=== PATIENT | female | born 1950 | race Caucasian/White ===

== ENCOUNTER 2022-05-11 09:40 | Outpatient (CLI) | payer MEDICARE, MEDICAID, SELFPAY ==
--- NOTE | ~2022-05-11 | MR_ITS ---
EXAMINATION: MR hip RT wo con DATE: 05/11/2022 10:54 INDICATION: Right hip pain TECHNIQUE: Magnetic resonance imaging (MRI) of the right hip was performed without intravenous contr ast. Sequences included full-field axial PD-weighted FS FSE and T1-weighted FSE, coronal of the pelvi s with PD-weighted FS FSE, T2-weighted FSE and T1-weighted FSE, small field of view of the right hip with axial PD-weighted FS FSE, sagittal PD-weighted FS FSE, coronal PD-weighted FS FSE and coronal T2 weighted FSE. Additional radial T1-weighted FGR oriented orthogonal to the acetabular rim were obt ained for evaluation of the labrum. COMPARISON: Right hip radiographs dated 10/30/[address] abdomen and pelvis dated 01/24/2016 FINDINGS: Bones/labrum/cartilage: Lower lumbar levoscoliosis likely compensatory for a nonvisualized thoracolumbar dextroscoliosis whic h can be seen on prior CT. Severe lumbar spondylosis. No fracture, avascular necrosis or pathologic m arrow replacing process. Diffuse tearing of the right acetabular labrum with thickened macerated appe arance anterosuperiorly. Moderate right hip osteoarthritis with full/near full-thickness chondral ulc eration at the superolateral aspect of the right acetabulum and at the posterior aspect of the femora l head. There is replacement of much of the cartilage thickness by a large flat central subchondral o steophyte extending along the posterior posterior superior right acetabulum. Additional deep chondral ulceration. Additional mild to moderate osteoarthritis at the left hip with mild subarticular cystic change at the apex of the left femoral head. There is likely tearing of the left acetabular labrum h owever evaluation is significantly limited by the larger field of view of imaging. Mild to moderate b ilateral sacroiliac osteoarthritis. No erosions to suggest inflammatory arthritis. Fluid: Relatively symmetric minimal bilateral hip joint effusions. Soft tissues: No abnormal muscle signal with relatively symmetric likely age-related mild atrophy of the musculatur e of the pelvis and visualized proximal thighs. The iliopsoas and gluteal tendons are normal. Mild bi lateral ischial bursitis with mild tendinopathy and partial thickness tears at the ischial tuberosity origins of the bilateral proximal hamstring tendons. The uterus is not identified and has likely bee n surgically resected. Limited evaluation of visceral organs of the pelvis is otherwise unremarkable. No pathologically enlarged pelvic/inguinal lymphadenopathy. IMPRESSION: 1. Moderate right hip osteoarthritis with diffuse labral tearing. 2. Mild to moderate left hip osteoarthritis with suggestion of similar to the acetabular labrum which is not diagnostically evaluated on the larger field of view images. 3. Lumbar levoscoliosis with severe spondylosis. 4. Bilateral mild ischial bursitis with mild tendinopathy and mild partial-thickness tears of the ramiro ateral proximal hamstring tendons. Reviewed, dictated and finalized at location A. IMPRESSION: 1. Moderate right hip osteoarthritis with diffuse labral tearing. 2. Mild to moderate left hip osteoarthritis with suggestion of similar to the a cetabular labrum which is not diagnostically evaluated on the larger field of v iew images. 3. Lumbar levoscoliosis with severe spondylosis. 4. Bilateral mild ischial bursitis with mild tendinopathy and mild partial-thic kness tears of the bilateral proximal hamstring tendons.
== END 2022-05-11 09:41 | disposition home or self-care (01) ==
PROVIDERS: Visit Provider Orthopaedic Surgery
DX: M16.11 Unilateral primary osteoarthritis, right hip (principal); M47.896 Other spondylosis, lumbar region
CPT/HCPCS: 73721

== ENCOUNTER 2024-12-04 11:56 | Outpatient (NON) | payer OTHER, MEDICARE, MEDICAID, SELFPAY ==
--- OUTSIDE RECORDS SUMMARY | 2024-12-04 13:20 | XMS_ITS | Encounter Summary ---
Author Organization [facility] Address [address] [place] [address] Phone Care Team Providers Care Vault Teller Name Role Phone Dave Ramirez MD Primary Care Provider [phone] Joyce Espinosa FORMING MACHINE UPKEEP MECHANIC HELPER Primary Care Provider [phone] Scarlett Campa MD Primary Care Pro vider Joyce Espinosa FORMING MACHINE UPKEEP MECHANIC HELPER Primary Care Provider [phone] Prerna Guardado FORMING MACHINE UPKEEP MECHANIC HELPER Primary Care Provider + [phone] David Wharton MD Unavailable [phone] Christiane Sandoval MD Unavailable [phone] Alexus Arevalo FORMING MACHINE UPKEEP MECHANIC HELPER Primary Care Provider [phone] Encounter Details Date Type Department Care Team (Late st Contact Info) Description 08/02/2021 Telephone [facility] Oncology [facility] 7[address] [place] [address] [place] [address] Kat Car Social History Tobacco Use Types Packs/Day Years Used Date Smoking Tobacco: Light Smoker Cigarettes Smokeless Tobacco: Never Alcohol Use Standard Drinks/Week Comments Yes 0 (1 standard drink = 0.6 oz pure alcohol) one glass of wine every night with her Comments No Sex and Gender Information Value Date Recorded Sex Assigned at Not on file Legal Sex Female 2:17 AM CUSTOMER ACCOUNT REPRESENTATIVE Gender Identity Female 09/25/2023 11:55 PM CUSTOMER ACCOUNT REPRESENTATIVE Sexual Orientation Not on file documented as of this encounter Plan of Treatment Not on file documented as of this encounter Visit Diagnoses Not on filedocumented in this encounter Additional Health Concerns Infection Onset Date Last Indicated Resolved Time COVID: Suspected 10/16/2023 10/16/2023 10/16/2023 8:56 AM CUSTOMER ACCOUNT REPRESENTATIVE COVID: Suspected 11/05/2023 11/05/2023 11/05/2023 9:35 AM CUSTOMER ACCOUNT REPRESENTATIVE COVID: Suspected 11/27/2023 11/27/2023 11/27/2023 9:34 PM CDT C. difficile suspected Comment:Pending stool sample 03/02/2024 03/05/2024 03/05/2024 5:05 PM CDT COVID: Suspected 03/27/2024 03/27/2024 03/27/2024 12:21 PM CDT COVID19 03/27/2024 03/27/2024 04/08/2024 3:05 AM CDT COVID: Recovered Comment:Added based on recent COVID infection. 04/08/2024 04/08/2024 07/07/2024 3:05 AM C DT COVID: Suspected 05/03/2024 05/03/2024 05/04/2024 3:05 AM CDT documented as of this encounter Care Teams Vault Teller Relationship Specialty Start Date End Date Dave Ramirez MD [address] [place] [address] PCP - General 01/25/21 04/26/22 Joyce Espinosa, LEVI [address] [facility] [address] [place] [address] PCP - General 04/27/22 12/18/22 Scarlett Campa MD [address] [facility] [address] [place] [address] PCP - General Family Medicine 12/19/22 01/03/23 Joyce Espinosa NP [address] [facility] [address] [place] [address] PCP - General Nurse Practitioner 01/04/23 10/01/23 Prerna Guardado, LEVI [address] [facility] [address] [place] [address] PCP - General Emergency Medicine 10/02/23 03/17/24 Alexus Arevalo NP [address] [place] [address] PCP - General Family Medicine 03/18/24 David Wharton MD [address] [facility] [address] [place] [address] [address] Consulting Physician Cardiovascular Disease 10/24/23 Christiane Sandoval MD [address] [facility] [address] [place] [address] Consulting Physician Gastroenterology 02/13/24 documented as of this encounter
--- OUTSIDE RECORDS SUMMARY | 2024-12-04 13:21 | XMS_ITS | Encounter Summary ---
Author Organization [facility] Address [address] [place] [address] Care Team Providers Care Bicycle Service Technician Name Role Phone Joyce Bailon WRAPPER REWINDER Primary Care Provider [phone] Layla Yancey WRAPPER REWINDER Unavailable [phone] Hugh Avila DO Unavailable Joyce Bailon WRAPPER REWINDER Primary Care Provider [phone] Encounter Details Date Type Department Care Team (Late st Contact Info) Description 12/27/2021 Abstract [facility] [address] [place] [id number] Abstract, Doc [facility] Social History Tobacco Use Types Packs/Day Years Used Date Smoking Tobacco: Never Assessed Comments Unknown Sex and Gender Information Value Date Recorded Sex Assigned at Not on file Legal Sex Female 8:21 PM CDT Gender Identity Not on file Sexual Orientation Not on file documented as of this encounter Plan of Treatment Not on file documented as of this encounter Procedures Procedure Name Priority Date/Time Associated Diagnosis Comments HEMOGLOBIN, GLYCOSYLATED Routine 01/28/2021 documented in this encounter Results * HEMOGLOBIN, GLYCOSYLATED (01/28/2021) HGB A1C 5.6 % 01/28/2021 us Doc [facility] Abstract LABORATORY Final Result documented in this encounter Visit Diagnoses Not on filedocumented in this encounter Care Teams Bicycle Service Technician Relationship Specialty Start Date End Date Joyce Bailon NP PCP - General Nurse Practitioner Family 12/09/2112/18 Joyce Bailon NP PCP - General Assisted Living Facility 01/05/2303/23 Layla Yancey NP Nurse Practitioner NURSE PRACTITIONER 12/09/21 12/18/22 Hugh Avila DO Consulting Physician INTERNAL MEDICINE 12/09/21 12/18/22 documented as of this encounter
--- OUTSIDE RECORDS SUMMARY | 2024-12-04 13:21 | XMS_ITS | Referral Summary ---
Author Organization [facility] Address [address] [place] [address] Care Team Providers Care Geriatric Social Work Professor Name Role Phone David Wharton MD Unavailable [phone] Christiane Sandoval MD Unavailable [phone] Alexus Arevalo NP Primary Care Provider [phone] Encounters Date Type Department Care Team Description 11/25/2024 [facility] [address] [place] [address] [id number] Cecilia Garcia 11/22/2024 [facility] [address] [place] [address] [id number] Cecilia Garcia from Last 3 Months Allergies Active Allergy Reactions Criticality Noted Date Comments Albuterol Other (See comments) Low 04/05/2019 heart races with plain albuterol; patient states she is able to tolerate if given with ipratropium (Duo-Nebs). Citalopram Stomach upset Medium 04/05/2019 Duloxetine Hives,Itching Medium 04/05/2019 Gabapentin Itching Medium 04/05/2019 Grass Pollen Unknown Latex Itching,Rash Medium 04/05/2019 Lisinopril Itching,Dizziness Medium 04/05/2019 Mold Unknown Nsaids (Non-Steroidal Anti-Inflammatory Drug) Other (See comments) Low Patient reports NSAIDs irritate her stomach ulcers. Tolerates low dose aspirin without issue. Penicillins Anaphylaxis,Hives High 04/05/2019 Ok for cephalosporins Sulfa (Sulfonamide Antibiotics) Swelling Medium Topiramate Tramadol Stomach upset Medium 04/05/2019 Irritates stomach ulcers. Tolerates low dose aspirin without issue. Tree And Shrub Pollen Unknown Verapamil Hives Medium 08/24/2019 Medications ferrous sulfate 325 mg (65 mg of elemental iron) tablet Take 1 tablet (325 mg total) by mouth daily with breakfast Active fluticasone propionate (FLONASE) 50 mcg/actuation nasal spray Administer 1 spray into each nostril daily Active sucralfate (CARAFATE) 1 gram tablet Take 1 tablet (1 g total) by mouth 4 (four) times a day Active busPIRone (BUSPAR) 7.5 mg tablet Take 1 tablet (7.5 mg total) by mouth 2 (two) times a day Active olopatadine (PATANOL) 0.1 % ophthalmic solution Administer 1 drop into both eyes daily Active sertraline (ZOLOFT) 100 mg tablet Take 1 tablet (100 mg total) by mouth daily Active melatonin tablet Take 5 mg by mouth nightly Active ondansetron (ZOFRAN) 4 mg tablet Take 1 tablet (4 mg total) by mouth every 4 (four) hours as needed for nausea or vomiting Active alendronate (FOSAMAX) 70 mg tablet Take 1 tablet (70 mg total) by mouth every 7 days on Wednesdays 0 Active cholecalciferol (VITAMIN D-3) 1000 unit tablet Take 1 tablet (1,000 Units total) by mouth daily Active EPINEPHrine 0.3 mg/0.3 mL auto-injection syringe Inject 0.3 mL (0.3 mg total) into the muscle as instructed as needed for anaphylaxis 7 Active montelukast (SINGULAIR) 10 mg tablet Take 1 tablet (10 mg total) by mouth nightly [address] (PROTONIX) 40 mg EC tablet Take 1 tablet (40 mg total) by mouth 2 (two) times a day 2 Active rosuvastatin (CRESTOR) 5 mg tablet Take 1 tablet (5 mg total) by mouth nightly 2 Active mirtazapine (REMERON) 30 mg tablet Take 1 tablet (30 mg total) by mouth nightly 3 Active magnesium oxide (MAG-OX) 400 mg (241.3 mg elemental magnesium) tablet Take 1 tablet (400 mg total) by mouth daily Active nitroglycerin (NITROSTAT) 0.[address] 1 tablet (0.4 mg total) under the tongue every 5 (five) minutes as needed for chest pain Active oxyCODONE (ROXICODONE) 10 mg tablet Take 1 tablet (10 mg total) by mouth every 6 (six) hours as needed for pain Active gabapentin (NEURONTIN) 100 mg capsule Take 1 capsule (100 mg total) by mouth 2 (two) times a day Active ipratropium-alb uteroL (DUO-NEB) 0.5-2.5 mg/3 mL nebulizer solution Take 3 mL by nebulization 2 (two) times a day as needed for wheezing or shortness of breath 180 mL 4 Active acetaminophen (TYLENOL) 500 mg tablet Take 1 tablet (500 mg total) by mouth every 6 (six) hours as needed for pain Active lidocaine (LIDODERM) 5 % Place 1 patch on the skin daily on low back. Remove & discard patch within 12 hours or as directed by MD. Active albuterol HFA (PROVENTIL HFA,VENTOLIN HFA,PROAIR HFA) 90 mcg/actuation inhaler Inhale 2 puffs every 6 (six) hours as needed for wheezing or shortness of breath 1 each 3 4 Active budesonide-form oteroL (SYMBICORT) 160-4.5 mcg/actuation inhaler Inhale 1 puff 2 (two) times a day Rinse mouth with water after use. Do not swallow. 1 each 3 4 Active amiodarone (PACERONE) 200 mg tablet Take 1 tablet (200 mg total) by mouth daily Active rivaroxaban (XARELTO) 15 mg tablet Take 1 tablet (15 mg total) by mouth daily with dinner Active ipratropium-alb uteroL (DUO-NEB) 0.5-2.5 mg/3 mL nebulizer solution Take 3 mL by nebulization 2 (two) times a day Active guaiFENesin ER (MUCINEX) 600 mg 12 hr tablet Take 2 tablets (1,200 mg total) by mouth 2 (two) times a day 120 tablet 11 4 03/29/20 25 Active furosemide (LASIX) 40 mg tablet Take 1 tablet (40 mg total) by mouth daily Active methocarbamoL (ROBAXIN) 500 mg tablet Take 1 tablet (500 mg total) by mouth 3 (three) times a day as needed for muscle spasms Active Active Problems Problem Noted Date Diagnosed Date Gastrointestinal hemorrhage with melena 04/20/20 SARS-CoV-2 positive 03/27/2024 COVID 03/27/2024 Gastrointestinal hemorrhage, unspecified gastrointestinal hemorrhage type 03/02/2024 Proctocolitis 03/02/2024 Gastric intestinal metaplasia 02/13/2024 Chronic anticoagulation 02/13/2024 Paroxysmal atrial fibrillation 02/13/2024 Severe protein-calorie malnutrition 02/09/2024 Symptomatic anemia 01/31/2024 Melena 01/30/2024 Chronic pain syndrome 12/02/2023 Chronic narcotic dependence 12/02/2023 Macrocytic anemia 12/01/2023 Pleural effusion, bilateral 11/05/2023 Atrial fib/flutter, transient 10/21/2023 Nonrheumatic aortic valve stenosis 10/21/2023 Coronary artery disease invo lving [place] heart without angina pectoris 12/20/2022 Overview (12/20/2022): follows with cards continue statin & 81mg ASA Chronic congestive heart failure 12/20/2022 Overview (12/20/2022): Follows with cards on 40mg lasix daily with additional 20mg daily prn GARRICK (generalized anxiety disorder) 12/20/2022 Overview (12/20/2022): continue 100mg zoloft and 7.5mg buspar bid Nicotine dependence 12/21/2020 Assessment & Plan (12/20/2022 6:23 AM CDT): Encouraged cessation Diabetes mellitus 09/22/2020 Assessment & Plan (12/20/2022 6:22 AM CDT): Not on medications Check a1c Thyroid nodule 09/22/2020 Hyperthyroidism 09/22/2020 Assessment & Plan (12/20/2022 6:22 AM CDT): Not on medications Check labs Chronic respiratory failure with hypoxia 020 Assessment & Plan (12/20/2022 6:18 AM CDT): Follows with pulmonology On 2-3L O2 Exercise hypoxemia 08/05/2020 Sleep-related hypoxia 08/05/2020 Syncope due to sick sinus syndrome 08/05/2020 Colon polyps 11/04/2019 Overview (11/04/2019): With normal transaminases with possible history of papillary stenosis with previous ERCP and pancreatic common bile duct sent placements Mechanical complication of esophagostomy 020 Obstructive chronic bronchitis with exacerbation 11/04/2019 Chronic obstructive pulmonary disease with bronc hospasm 10/21/2019 Common bile duct stricture 10/21/2019 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 GERD (gastroesophageal reflux disease) 0 Overview (10/21/2019): With severe esophageal dysmotility Assessment & Plan (12/20/2022 6:28 AM CDT): Follows with GI On protonix 40mg and carafate 1g QID Chronic back pain 10/21/2019 Assessment & Plan (12/20/2022 6:20 AM CDT): Advised prior to start of appointment that I don't manage/prescribe opiates for chronic pain, she notes understanding Given the names of several pain management groups in the area Assessment & Plan (10/22/2019 1:22 PM FINANCIAL AID COUNSELOR): Continue patient's home tylenol but holding flexeril and lyrica, due to concern for ongoing altered mental status. - Can give lidocaine patch if patient has increased pain overnight. - Restarted oxycodone 5 mg PRN for pain, although this correlated with increase in patient somnolence. - CTM mental status and pain. Depression 10/21/2019 Assessment & Plan (12/20/2022 6:20 AM CDT): PHQ Screening PHQ-2 Total Score (If total score is 3 or more points, staff should administer the PHQ-9): 0 PHQ-9 Total Score: 2 Continue remeron 30mg nightly and 100mg zoloft Assessment & Plan (10/21/2019 8:22 PM FINANCIAL AID COUNSELOR): Not listed in her chart, but patient is on three different psychiatric meds, including mirtazapine, buspirone, and sertraline. Will also clarify this with PCP tomorrow. Will continue home psych meds. Repeated falls 10/21/2019 Assessment & Plan (10/23/2019 2:34 PM FINANCIAL AID COUNSELOR): Patient fell 4 times in one night, with resulting L tibial plateau fracture. - Source of falls sound syncopal, possibly 2/2 to ongoing infection and dehydration. - PT/OT eval for mobility and safety once patient's acute illness is treated and she can tolerate it. - Recommended home PT/OT. - Will order wheelchair for patient as well. - Patient lives at the end of a long hallway and with decreased mobility due to non-weight bearing on left leg she will be unable to go to the cafeteria for meals without a wheelchair. - Patient has inadequate upper body strength and coordination to safely use a cane or a walker in order to maintain non-weight bearing status on left leg. - Patient's facility has elevators that will permit use of wheelchair within the facility. Chronic obstructive pulmonary disease 10/21/2019 Overview (10/21/2019): COPD Assessment & Plan (12/20/2022 6:21 AM CDT): Follows with pulmonology Continue symbicort daily and albuterol prn Assessment & Plan (10/21/2019 8:23 PM FINANCIAL AID COUNSELOR): Continue home advair, ipratropium, and flonase. Osteoporosis 10/21/2019 Assessment & Plan (12/20/2022 6:22 AM CDT): Continue fosamax Assessment & Plan (10/21/2019 8:24 PM FINANCIAL AID COUNSELOR): Patient takes vitamin D supplements daily and alendronate weekly. - Continue alendronate, especially in the context of tibial plateau fracture. Primary osteoarthritis of right hip 03/12/2018 Essential hypertension 03/10/2014 Assessment & Plan (12/20/2022 6:18 AM CDT): Blood pressure at goal, continue dilt Assessment & Plan (10/21/2019 8:19 PM FINANCIAL AID COUNSELOR): Will hold home lasix and potassium in the setting of acute infection. Has not been hypertensive during this admission. Lumbago 03/10/2014 Arthritis 03/10/2014 Pure hypercholesterolemia 01/25/2014 Overview (12/16/2016): PURE HYPERCHOLESTEROLEM Assessment & Plan (12/20/2022 6:19 AM CDT): Continue statin Resolved Problems Problem Noted Date Diagnosed Date Resolved Date Diarrhea 02/09/2024 03/02/2024 Dehydration 02/09/2024 03/02/2024 UGIB (upper gastrointestinal bleed) 02/08/2024 03/02/2024 Acute upper GI bleeding 02/03/202402/10 Gastritis with hemorrhage 02/03/2024 Sepsis due to Escherichia coli 02/03/2024 03/02/2024 Profound anemia 01/30/2024 03/02/2024 Acute renal failure 12/02/2023 01/31/20 Hyperkalemia 12/01/2023 01/31/2024 Acute retention of urine 11/30/2023 Hypernatremia 11/30/2023 01/31/2024 Small bowel obstruction 11/27/202301/10 COPD with acute exacerbation 11/05/2023 01/31/2024 Acute on chronic respiratory failure with hypoxia 11/05/2023 01/31/2024 Severe protein-calorie malnutrition 10/21/2023 03/02/2024 Acute on chronic heart failu re with preserved ejection fraction 10/21/2023 01/31/2024 Multifocal pneumonia 10/16/2023 024 Gross hematuria 09/26/2023 01/31/2024 Generalized abdominal pain 06/09/2023 0 01/31/2024 Constipation 12/20/2022 01/31/2024 Environmental allergies 12/20/202201/10 Overview (12/20/2022): Continue claritin, singulair and flonase Bacteremia due to Pseudomonas 08/05/2020 12/19/2022 Community acquired pneumonia, bilateral 08/05/2020 12/19/2022 Suspected 2019-nCoV infection 08/05/2020 01/31/2024 Dyslipidemia, goal LDL below 100 11/04/2019 01/31/2024 Line sepsis ([facility]/HCC) 11/04/20192022 Pain of left calf 11/04/2019 01/31/2024 Recurrent vomiting 11/04/2019 Assessment & Plan (12/20/2022 6:22 AM CDT): Following with GI On reglan and zofran as needed Sprain of left foot 11/04/2019 12/20/19 23 Swelling of right lower extremity 11/04/2019 01/31/2024 Localized swelling of left lower extremity 10/23/2019 01/31/2024 Assessment & Plan (10/23/2019 11:41 AM FINANCIAL AID COUNSELOR): Patient had new-onset left lower extremity swelling this AM. Could be secondary to trauma to that leg, but should rule out DVT given recent trauma to that leg. - Got bilateral venous dopplers in her lower extremity which were negative DVT. - Recommend elevation of leg when possible. Severe malnutrition 10/22/2019 03/02/20 Assessment & Plan (10/23/2019 11:39 AM FINANCIAL AID COUNSELOR): Assessed by welt sole layer, malnutrition secondary to poor PO intake, most likely from recent illness and altered mental status. - Ordered Ensure Plus supplements with meals. Acute cystitis without hematuria 10/21/2019 12/19/2022 Assessment & Plan (10/23/2019 11:24 AM FINANCIAL AID COUNSELOR): Patient initially worked up for stroke, found to have increased urinary frequency, suprapubic pain, and dysuria, along with leuk esterase and nitrites. - Patient started on IV ciprofloxacin empirically, and then broadened to aztreonam by the ED O/N. - On admission to the floor transitioned patient to ceftriaxone. - Urine culture is pending. - Patient apparently has a history of UTIs, but unclear when her last one was and what her UTIs have been treated with in the past. - Urine cultures showed E. Coli that is nelson sensitive. Because patient has tolerated ceftriaxone well, will plan to discharge on cephalexin 500 mg BID. Delirium 10/21/2019 03/02/2024 Assessment & Plan (10/23/2019 11:37 AM FINANCIAL AID COUNSELOR): Patient with worsening mental status over the last 3 months per patient's nurse at the nursing facility. - Initially concern for acute stroke in the setting of new falls, but nurse's reports sounds of longer duration than would be expected from an acute stroke. - However, decline in mental status appears to pre-date current bout of urinary symptoms. - Mental status appears to be improving with hydration and treatment of her infection - mental status was much improved this morning. - Most likely multifactorial, since patient was more somnolent after taking oxycodone for pain, and she has multiple sedation and delirium inducing medications prescribed. - Delirium precautions, including ramelteon and mirtazapine for sleep if necessary. Will continue to try to minimize delirium-provoking medications. - Will discharge to home on acetaminophen 650 q 6 hr, oxycodone 5 mg q 6 hr PRN, and 4% topical lidocaine patches for pain. - Discontinuing flexeril and oxycodone 20 mg. Making metoclopromide PRN rather than scheduled. Patient reports that her pain has been well-controlled on oxycodone 5 mg q 4 hr, and she has not had trouble with PO intake. Common bile duct stricture 10/21/2019 0 01/31/2024 Assessment & Plan (10/22/2019 1:22 PM FINANCIAL AID COUNSELOR): Patient has history of multiple ERCPs for biliary stricture with concern for duodenal mass. - Actual nature of this medical issue is currently unclear and patient could not provide more detail. Will call PCP tomorrow. - Continue home sucralfate, and pantroprazole for right now. - Holding home metoclopramide unless nauseated due to concern that it is contibuting to delirium. Tibial plateau fracture, lef t, closed, initial encounter 10/21/2019 01/31/2024 Assessment & Plan (10/23/2019 11:38 AM FINANCIAL AID COUNSELOR): Orthopedics consulted. Per their evaluation patient is not an operative candidate. - Patient to wear hinged knee brace at all times unless showering until orthopedics follow up scheduled with Dr Amaro on 11/07/2019. - Patient is ROM as tolerated in LLE and non-weight bearing in LLE. - Tertiary exam to be performed on 10/22/2019 - no further interventions plans. Post-op pain 07/02/2019 01/31/2024 Pain in buttock 03/10/2014 01/31/2024 Pain of lower extremity 03/10/201401/10 Numbness of foot 03/10/2014 01/31/2024 Tachycardia 01/25/2014 03/02/2024 Overview (12/15/2016): TACHYCARDIA NOS Shortness of breath 01/25/2014 03/02/20 Overview (12/16/2016): SHORTNESS OF BREATH Chest pain 01/25/2014 03/02/2024 Overview (12/16/2016): CHEST PAIN NOS Palpitations 01/25/2014 01/31/2024 Overview (12/16/2016): PALPITATIONS Immunizations Immunization Administration Dates Next Due Hep A, Unspecified 06/15/2015,07/21/2014 Hep B Vaccine 10/31/2000,09/26/2000 Influenza, Quadrivalent, Hig h Dose, Preservative Free, Intrr 06/15/2023,06/20/2022,06/11/2020,05/30 Influenza, Quadrivalent, Spl it, Intramuscular 07/06/2018 Influenza, Trivalent, Preser vative Free, Intramuscular 04/11/2013 Influenza, Unspecified 08/26/2021,2018,06/11/2019,07/06,05/08/2018,05/25/2017,07/07/2016 ,05/24/2016,06/15/2015,07/21/2014,/09/2012 Moderna SARS-CoV-2 Monovalen t Vaccination (12+ YRS) 08/23/2021 Pfizer SARS-CoV-2 Monovalent Vaccination (12+ Yrs) PURPLE 10/29/2020 Pneumococcal Conjugate PCV 13 09/28/2017, 017 Pneumococcal Conjugate, Unspecified 09/11/2007 Pneumococcal Polysaccharide PPV23 07/06/2018 Tdap 03/08/2017 Social History Tobacco Use Types Packs/Day Years Used Date Smoking Tobacco: Former Cigarettes Smokeless Tobacco: Never Tobacco Cessation:Counseling Given: Not Answered Comments:5 cigarettes per day Alcohol Use Standard Drinks/Week Comments Yes 0 (1 standard drink = 0.6 oz pure alcohol) one glass of wine every night with her [employer] Answer Date Recorded In the past 12 months has [employer], [employer], or water [employer] threatened to shut off services in your home? No 03/28/2024 Social Connection and Isolat ion Panel [NHANES] Answer Date Recorded In a typical week, how many times do you talk on the phone with family, friends, or neighbors? More than three times a week 03/28/2024 How often do you get togethe r with friends or relatives? More than three times a week 03/28/2024 How often do you attend chur or episcopalian services? 1 to 4 times per year 03/28/2024 Do you belong to any clubs o r organizations such as sabianist groups, unions, fraternal or athletic groups, or school groups? No 03/28/2024 How often do you attend meet ings of the clubs or organizations you belong to? Never 03/28/2024 Are you , , di vorced, , never , or living with a partner? 03/28/2024 AUDIT-C Answer Date Recorded Q1: How often do you have a drink containing alc ohol? Monthly or less 05/07/2024 Q2: How many drinks containi ng alcohol do you have on a typical day when you are drinking? 1 or 2 05/07/2024 Q3: How often do you have si x or more drinks on one occasion? Never 05/07/2024 Overall Financial Resource Strain (CARDIA) Answe r Date Recorded How hard is it for you to pa y for the very basics like food, housing, medical care, and heating? Not hard at all 03/28/2024 PHQ-2 Answer Date Recorded PHQ-2 Total Score 0 05/29/2024 Hunger Vital Sign Answer Date Recorded Within the past 12 months, y ou worried that your food would run out before you got the money to buy more. Never true 03/28/20 24 Within the past 12 months, t he food you bought just didn't last and you didn't have money to get more. Never true 03/28/2024 PRAPARE - Transportation Answer Date Re corded In the past 12 months, has l ack of transportation kept you from medical appointments or from getting medications? No 03/11 In the past 12 months, has l ack of transportation kept you from meetings, work, or from getting things needed for daily living? No 03/28/2024 Housing Stability Vital Sign Answer Migue e Recorded In the last 12 months, was t here a time when you were not able to pay the mortgage or rent on time? No 11/28/2023 In the last 12 months, how many places have you lived? 1 11/28/2023 In the last 12 months, was t here a time when you did not have a steady place to sleep or slept in a fpc (including now)? No 11/28/2023 PHQ-9 Answer Date Recorded PHQ-9 Total Score 1 05/29/2024 Housing Stability Vital Sign Answer Migue e Recorded In the last 12 months, was t here a time when you were not able to pay the mortgage or rent on time? No 03/28/2024 In the past 12 months, how m any times have you moved where you were living? 0 03/28/2024 At any time in the past 12 m [facility], were you homeless or living in a fpc (including now)? No 03/28/2024 Personal Safety Answer Date Recorded Have you ever been in or are you currently in a harmful physical or emotional relationship or is someone making you feel afraid or unsafe? Denies 06/09/2024 Comments No Sex and Gender Information Value Date Recorded Sex Assigned at Not on file Legal Sex Female 2:17 AM FINANCIAL AID COUNSELOR Gender Identity Female 09/25/2023 11:55 PM FINANCIAL AID COUNSELOR Sexual Orientation Not on file Last Filed Vital Signs Vital Sign Reading Time Taken Comments Blood Pressure 102/61 06/09/2024 5:40 AM CDT Pulse 64 06/09/2024 5:40 AM CDT Temperature 36.5 C (97.7 F) 06/09/2024 1:34 AM CDT Respiratory Rate 14 06/09/2024 5:40 AM CDT Oxygen Saturation 93% 06/09/2024 5:45 AM CDT Inhaled Oxygen Concentration - - Weight 44 kg (97 lb) 06/09/2024 1:34 AM CDT Height 160 cm (5' 3 ) 05/29/2024 10:00 AM CDT Body Mass Index 17.18 05/29/2024 10:00 AM CDT Plan of Treatment Not on file Procedures Procedure Name Priority Date/Time Associated Diagnosis Comments EGFR STAT 06/09/2024 1:03 AM CDT SCREENING MAMMOGRAM BILATERAL W MATT Schedule Routine, Read Routine (OP Routine) 04/01/2024 2:12 PM CDT Screening mammogram, encounter for LIPID PANEL Routine 03/27/2024 4:40 PM CDT DEXA AXIAL SKELETON BONE DENSITY 1 OR MORE SITES Schedule Routine, Read Routine (OP Routine) 12/19/2023 8:37 AM CDT Postmenopausal state HEMOGLOBIN A1C Routine 11/07/2023 6:27 AM FINANCIAL AID COUNSELOR from Last 3 Months or Most Recently Relevant to Health Maintenance Results * eGFR (06/09/2024 1:03 AM CDT) eGFR 61 >=60 mL/min/1. 73 m2 Comment: Interpretive Data Reference Interval Normal >/= 90 mL/min/1.73m2 Mildly decreased* 60 - 89 mL/min/1.73m2 Mildly to moderately decreased 45 - 59 mL/min/1.73m2 Moderately to severely decreased 30 - 44 mL/min/1.73m2 Severely decreased 15 - 29 mL/min/1.73m2 Kidney Failure < 15 mL/min/1.73m2 *Relative to young adult level Estimated glomerular filtration rate is determined by the 2020 CKD-EPI equation recommended by the National Kid[employer] Foundation (A Unifying Approach to GFR Estimation: Recommendations of the NKF-ASK Task Force on Reassessing the Inclusion of Race in Diagnosing Kidney Disease, JASN 2020). The CKD-EPI equation should not be used for patients with unstable renal function and has not been validated in children and those over 70. Current interpretive data was last reviewed 2021. Blood 06/09/2024 1:03 AM CDT 06/09/2024 1:05 AM CDT us Juanito Lyons Jr., MD LAB BLOOD ORDERABLES Fi nal Result [facility] [id number] [facility] Department [place] [address] * (ABNORMAL) Screening Mammogram Bilateral W Matt (04/01/2024 2:12 PM CDT) Anatomical Region Laterality Modality Breast Bilateral Mammography Impressions 04/01/2024 2:17 PM CDT BI-RADS ATLAS category (overall): 0 - Incomplete: Needs Additional Imaging Evaluation There is a focal asymmetry in the central right breast. Further evaluation with right unilateral diagnostic mammogram and possible sonogram is recommended. No suspicious findings are identified in the left breast on mammogram. The patient has been or will be contacted. Narrative 04/01/2024 2:17 PM CDT Screening Mammogram Bilateral W Matt: 04/01/24 The study was acquired using full field digital technology and interpreted from soft copy. 2D digital mammographic views, as well as 3D digital tomosynthesis were performed in the CC and MLO projections. CLINICAL: Screening mammogram, encounter for. No relevant medical history has been documented for this patient. History of breast cancer in Neg Hx. COMPARISONS: 05/22/2017 Diagnostic Mammogram Left W Matt 04/07/2017 Screening Mammogram Bilateral W Matt BREAST TISSUE: The breasts have scattered areas of fibroglandular density. FINDINGS: There is a focal asymmetry in the central right breast. No suspicious findings are identified in the left breast on mammogram. Alexus Arevalo STEEL RULE INSPECTOR IMG MAMMO PROCEDURES Final Result * Lipid panel (03/27/2024 4:40 PM CDT) Cholesterol 133 30 - 199 mg/dL Comment: Interpretive Data Ages < or = 19 years Acceptable: <170 mg/dL Borderline high: 170-199 mg/dL High: >or= 200 mg/dL Ages > or = 20 years Desirable: <200 mg/dL Borderline high: 200-239 mg/dL High: >or= 240 mg/dL Literature References: 1. Expert Panel on Integrated Guidelines for Cardiovascular Health and Risk Reduction in Children and Adolescents. Pediatrics 2011;128:S213 2. NCEP Expert Panel. Circulation 2004;110:227 Current Interpretive Data was last revised on 2018. Triglycerides 74 <=149 mg/dL MELISSA Comment: Interpretive Data Ages < or = 9 years Acceptable: <75 mg/dL Borderline high: 75-99 mg/dL High: >or= 100 mg/dL Ages 10 to 20 years Acceptable: <90 mg/dL Borderline high: 90-129 mg/dL High: >or= 130 mg/dL Ages > or = 20 years Desirable: <150 mg/dL Borderline high: 150-199 mg/dL High: 200-499 mg/dL Very high: >or= 499 mg/dL Literature References: 1. Expert Panel on Integrated Guidelines for Cardiovascular Health and Risk Reduction in Children and Adolescents. Pediatrics 2011;128:S213 2. NCEP Expert Panel. Circulation 2004;110:227 Current Interpretive Data was last revised on 2018. HDL 45 >=40 mg/dL MELISSA Comment: Interpretive Data Ages < or = 19 years Acceptable: >45 mg/dL Borderline low: 40-45 mg/dL Low: <40 mg/dL Ages > or = 20 years Desirable: >or= 60 mg/dL Low: <40 mg/dL Literature References: 1. Expert Panel on Integrated Guidelines for Cardiovascular Health and Risk Reduction in Children and Adolescents. Pediatrics 2011;128:S213 2. NCEP Expert Panel. Circulation 2004;110:227 Current Interpretive Data was last revised on 2018. LDL, calculated 73 <=129 mg/dL MELISSA SHRESTHA Comment: Interpretive Data Ages < or = 19 years Acceptable: <110 mg/dL Borderline high: 110-129 mg/dL High: >or= 130 mg/dL Ages > or = 20 years Optimal: <100 mg/dL Near optimal: 100-129 mg/dL Borderline high: 130-159 mg/dL High: >160 mg/dL Literature References: 1. Expert Panel on Integrated Guidelines for Cardiovascular Health and Risk Reduction in Children and Adolescents. Pediatrics 2011;128:S213 2. NCEP Expert Panel. Circulation 2004;110:227 Current Interpretive Data was last revised on 2018. Non-HDL Cholesterol 88 mg/dL MELISSA SHRESTHA Comment: Interpretive Data Ages < or = 19 years Acceptable: <120 mg/dL Borderline high: 120-144 mg/dL High: >145 mg/dL Ages > or = 20 years When triglycerides are >200 mg/dL, Non-HDL cholesterol is a secondary target of therapy with treatment goals that are 30 mg/dL greater than the LDL cholesterol target. Literature References: 1. Expert Panel on Integrated Guidelines for Cardiovascular Health and Risk Reduction in Children and Adolescents. Pediatrics 2011;128:S213 2. NCEP Expert Panel. Circulation 2004;110:227 Current Interpretive Data was last revised on 2018. Chol/HDL ratio 3 MELISSA SHRESTHA Blood 03/27/2024 4:40 PM CDT 03/27/2024 4:44 PM CDT Wan Dodge MD LAB BLOOD ORDERABLES Final Result MELISSA [address] [facility] Department [place] [address] * Dexa Axial Skeleton Bone Density 1 or 2 Site (12/19/2023 8:37 AM CDT) Anatomical Region Laterality Modality Body N/A Mammography 12/19/2023 8:47 AM CDT Narrative 12/19/2023 8:49 AM CDT EXAM DESCRIPTION: DEXA AXIAL SKELETON BONE DENSITY 1 OR MORE SITES REASON FOR STUDY: 73 y/o year old F with given history of: Post menopausal status. History of prior fracture, smoking and rheumatoid arthritis. Patient has taken/is taking vitamin-D and calcium. 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 Dissimilar scan types or analysis methods precludes assessment for calculating a significant change. FINDINGS: AP LUMBAR SPINE L1-L4: Total BMD is 0.858 g/cm2 T-score is -1.7 Dextroconvex curvature centered at the thoracolumbar junction LEFT HIP: Total BMD is 0.494 g/cm2 T-score is -3.7 Femoral neck BMD is 0.423 g/cm2 T-score is -3.8 Left forearm BMD in the radius 33% is 0.394 g/cm2 T-score is -5.0 FRAX: FRAX not reported due to T-scores of hip, femoral neck and/or spine being at or below -2.5 (Osteoporosis). IMPRESSION: Osteoporosis. REFERENCE: Bone mineral density: T-Score: Normal (T-score above or = -1.0) Low bone mass (T-score between -1.0 and -2.5) replaces the previously used term osteopenia Osteoporosis (T-score = or below -2.5) Z-Score: Within the expected range for age (Z-score above -2.0) Below the expected range for age (Z-score is -2.0 or below) Please see below follow up recommendations. Medical evaluation for secondary causes of low bone mineral density may be appropriate. FRAX is a World Health Organization validated fracture risk assessment tool that calculates a person's 10 year probability of a major osteoporosis related fracture and hip fracture. According to the National Osteoporosis Foundation guidelines, postmenopausal women and men age 50 or older with low bone mass and a 10 year probability of a major osteoporosis related fracture = or greater than 20% or a 10 year probability of a hip fracture = or greater than 3% should be considered for pharmacological treatment for the prevention of osteoporosis. For further information, including treatment recommendations, please refer to the 2019 ISCD Official Positions (http://www.iscd.org) and the NOF's Clinician's Guide to Prevention and Treatment of Osteoporosis (http://www.nof.org/professionals/clinical-guidelines) THIS IS AN ELECTRONICALLY VERIFIED FINAL REPORT 12/19/2023 8:49 AM - Electronically signed by Yue Shepard M.D. TW: TW Report ID: [id number] Reading Location: [place] [address] Procedure Note Yue Shepard MD - 12/19/2023 EXAM DESCRIPTION: DEXA AXIAL SKELETON BONE DENSITY 1 OR MORE SITES REASON FOR STUDY: 73 y/o year old F with given history of: Post menopausal status. History of prior fracture, smoking and rheumatoid arthritis. Patient has taken/is taking vitamin-D and calcium. 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 Dissimilar scan types or analysis methods precludes assessment for calculating a significant change. FINDINGS: AP LUMBAR SPINE L1-L4: Total BMD is 0.858 g/cm2 T-score is -1.7 Dextroconvex curvature centered at the thoracolumbar junction LEFT HIP: Total BMD is 0.494 g/cm2 T-score is -3.7 Femoral neck BMD is 0.423 g/cm2 T-score is -3.8 Left forearm BMD in the radius 33% is 0.394 g/cm2 T-score is -5.0 FRAX: FRAX not reported due to T-scores of hip, femoral neck and/or spine beingat or below -2.5 (Osteoporosis). IMPRESSION: Osteoporosis. REFERENCE: Bone mineral density: T-Score: Normal (T-score above or = -1.0) Low bone mass (T-score between -1.0 and -2.5) replaces thepreviously used term osteopenia Osteoporosis (T-score = or below -2.5) Z-Score: Within the expected range for age (Z-score above -2.0) Below the expected range for age (Z-score is -2.0 or below) Please see below follow up recommendations. Medical evaluation forsecondary causes of low bone mineral density may be appropriate. FRAX is a World Health Organization validated fracture risk assessmenttool that calculates a person's 10 year probability of a major osteoporosisrelated fracture and hip fracture. According to the National OsteoporosisFoundation guidelines, postmenopausal women and men age 50 or older with low bonemass and a 10 year probability of a major osteoporosis related fracture = or greater than 20% or a 10 year probability of a hip fracture = or greaterthan 3% should be considered for pharmacological treatment for the preventionof osteoporosis. For further information, including treatment recommendations, please referto the 2019 ISCD Official Positions (http://www.iscd.org) and the NOF's Clinician's Guide to Prevention and Treatment of Osteoporosis (http://www.nof.org/professionals/clinical-guidelines) THIS IS AN ELECTRONICALLY VERIFIED FINAL REPORT 12/19/2023 8:49 AM - Electronically signed by Yue Shepard M.D. TW: TW Report ID: [id number] Reading Location: [place] [address] us Prerna Guardado NP IMG DXA PROCEDURES Final Result * (ABNORMAL) Hemoglobin A1c (11/07/2023 6:27 AM FINANCIAL AID COUNSELOR) Hgb A1C 5.7(H) 4.0 - 5.6 % MELISSA SHRESTHA Estimated Average Glucose 117 mg/dL MELISSA SHRESTHA Comment: The ADA recommends reporting an estimated Average Glucose (eAG) with all Hemoglobin A1c results using the equation derived from a study of 507 normal and diabetic adults. Minority populations were underrepresented and children were not included. (Diabetes Care 31:8207-6596, 2008). The eAG is not equivalent to a fasting glucose. Blood 11/07/2023 6:27 AM FINANCIAL AID COUNSELOR 11/07/2023 7:04 AM FINANCIAL AID COUNSELOR us Jag Fox MD LAB BLOOD ORDERAB LES Final Result MELISSA SHRESTHA [address] [facility] Department of Laboratories [place], [place] [id number] from Last 3 Months or Most Recently Relevant to Health Maintenance Insurance [facility] MED[facility] ADVANTAGE [facility] Address: [address] [address] [place] [address] [facility] MEDICARE ADVANTAGE [facility] Address: [address] [address] [place] [address] [employer] [facility] MEDICARE ADVANTAGE [facility] Address: [address] [address] [place] [address] Advance Directives For more information, please contact: [phone] Documents on File Type Date Recorded Patient Security Patrol Driver Expl anation ADVANCE DIRECTIVE 06/12/2023 12:48 PM Beronica r of Fuel Technician-Medical ADVANCE DIRECTIVE 02/05/2012 12:00 AM BERONICA R OF MUSIC AUTOGRAPHER FINANCIAL/MEDICAL * Full Code (Latest Code Status on File) Date Activated Date Inactivated Comments 04/20/2024 11:01 PM 04/22/2024 5:05 PM * Full Code Date Activated Date Inactivated Comments 03/27/2024 3:41 PM 03/29/2024 7:36 PM * Full Code Date Activated Date Inactivated Comments 03/02/2024 8:20 PM 03/07/2024 8:03 PM * Full Code Date Activated Date Inactivated Comments 02/08/2024 9:06 PM 02/13/2024 6:38 PM * Full Code Date Activated Date Inactivated Comments 02/01/2024 1:03 PM 02/07/2024 4:45 PM Care Teams Geriatric Social Work Professor Relationship Specialty Start Date End Date Alexus Arevalo NP [facility] [place] [address] PCP - General Family Medicine 03/18/24 David Wharton MD [address] [address] [address] [place] [address] [address] Consulting Physician Cardiovascular Disease 10/24/23 Christiane Sandoval MD [address] [address] Consulting Physician Gastroenterology 02/13/24
--- OUTSIDE RECORDS SUMMARY | 2024-12-04 13:21 | XMS_ITS | Patient Health Record ---
Author Organization [facility] Address [address] [place], [place] [id number] Care Team Providers Care Food Service Aide Name Role Phone MARIMAR GALDAMEZ Unavailable [phone] Reason For Referral No Information Plan Of Treatment No Information
--- OUTSIDE RECORDS SUMMARY | 2024-12-04 13:21 | XMS_ITS | Clinical Summary ---
Author Organization [facility] Address [address] [facility] [place] [address] Care Team Providers Care Capacitor Pack Press Operator Name Role Phone Gerber Hi MD Primary Care Provider [phone] Source Comments [facility],non-owned Affiliates and Associated Physician Practices is amultiple site organization consisting of ambulatory clinics and hospital sitesin [place], [place], [place] and [place]. This disclosure is being madepursuant to the Care Everywhere program and may not contain all information available regarding this patient. Last updated 18.[facility] Allergies Active Allergy Reactions Criticality Noted Date Comments Albuterol Other 04/05/2019 Heart races Patient states able to take if given with atrovent. Aspirin Rash Medium 04/05/2019 Pt states she takes a low dose aspirin Sulfamethoxazole W-Trimethoprim Urticaria Medium 04/05/2019 Citalopram Urticaria Medium 04/05/2019 Duloxetine Urticaria Medium 04/05/2019 Fluticasone Swelling 04/05/2019 Pt states she takes this medication Gabapentin Urticaria Medium 04/05/2019 Latex Urticaria Medium 04/05/2019 Lisinopril Urticaria Medium 04/05/2019 Naproxen Urticaria Medium 04/05/2019 Nsaids GI Discomfort 04/05/2019 Patient has stomach ulcers, NSAIDS irritate Penicillins Anaphylaxis,Unknown High 04/05/2019 Sulfa Drugs Swelling 04/05/2019 Tramadol GI Discomfort 04/05/2019 Irritates stomach ulcers Dicloxacillin Other 04/05/2019 Doesn't remember the rxn Verapamil Unknown 08/24/2019 Medications * Be aware that medications may not be up to date on this document. Alwaysverify current medications with the patient. Medication Sig Dispensed Refills Start Date End Date Status metoclopramide (REGLAN) 10 MG tablet Take 10 mg by mouth 2 times daily Active omeprazole (PRILOSEC) 40 MG capsule Take 40 mg by mouth 2 times daily,before breakfast and supper Active polyethylene glycol 3350 (MIRALAX) powder Take 17 g by mouth once daily Active sucralfate (CARAFATE) 1 GM tablet Take 1 g by mouth 4 times daily - before meals & nightly Active oxyCODONE (OXY-IR) 5 MG capsule Take 20 mg by mouth every 4 hours as needed for Pain Active Acetaminophen (TYLENOL EXTRA STRENGTH PO) Take 500 mg by mouth 2 times daily Active vitamin D3 (CHOLECALCIFEROL) 1000 units tablet Take 1,000 Units by mouth once daily Active cetirizine (ZYRTEC) 10 MG tablet Take 10 mg by mouth once daily Active albuterol-ipratropi um (DUO-NEB) 0.5-2.5 (3) MG/3ML nebulizer solution Inhale 3 mL by mouth 2 times daily Active aspirin (ASPIRIN) 81 MG chew tablet Take 81 mg by mouth once daily Active busPIRone (BUSPAR) 5 MG tablet Take 5 mg by mouth 2 times daily Active atorvastatin (LIPITOR) 20 MG tablet Take 20 mg by mouth at bedtime Active ferrous sulfate 325 (65 FE) MG tablet Take 325 mg by mouth once daily Active fluticasone propionate (FLONASE) 50 MCG/ACT nasal spray Mantoloking 1 spray into each nostril once daily Active furosemide (LASIX) 40 MG tablet Take 40 mg by mouth once daily Active acetaminophen (TYLENOL) 325 MG tablet Take 325 mg by mouth every 4 hours as needed for Fever or Pain Maximum allowable Acetaminophen amount = 4 Grams (4000 mg) / 24 hours. Active alendronate (FOSAMAX) 70 MG tabletIndications: Take 70 mg by mouth every 7 days before meal Take in morning with full glass of water on empty stomach and remain upright for 30 min Reasons: monday Active fluticasone-salmete rol (ADVAIR/WIXELA) 500-50 MCG/DOSE inhaler Inhale 1 puff by mouth 2 times daily Active potassium chloride ER (KLOR-CON M) 10 MEQ tabletIndications:E R Take 10 mEq by mouth once daily Reasons: ER Active cefdinir (OMNICEF) 300 MG capsule Take 300 mg by mouth 2 times daily Active clotrimazole (LOTRIMIN AF) 1 % cream Apply to affected area 2 times daily Active olopatadine (PATANOL) 0.1 % ophthalmic solution Instill 1 drop into both eyes once daily Active melatonin 3 MG tablet Take 3 mg by mouth at bedtime Active cyclobenzaprine (FLEXERIL) 10 MG tablet Take 10 mg by mouth 3 times daily as needed for Muscle Spasms Active guaiFENesin ER 12hr (MUCINEX) 600 MG tablet Take 600 mg by mouth every 12 hours as needed for Cough Active ondansetron (ZOFRAN) 4 MG tablet Take 4 mg by mouth every 4 hours as needed for Nausea/Vomiting Active Active Problems Problem Noted Date Diagnosed Date 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 Social History Tobacco Use Types Packs/Day Years Used Date Smoking Tobacco: Every Day Cigarettes 0.3 50 Smokeless Tobacco: Never Alcohol Use Standard Drinks/Week Comments Yes 1 (1 standard drink = 0.6 oz pur e alcohol) every monday Sex and Gender Information Value Date Recorded Sex Assigned at Not on file Gender Identity Not on file Sexual Orientation Not on file Last Filed Vital Signs Vital Sign Reading Time Taken Comments Blood Pressure 98/68 09/13/2019 3:28 PM PROCESS MECHANIC Pulse 98 09/13/2019 3:28 PM PROCESS MECHANIC Temperature 37.1 C (98.8 F) 09/13/2019 2:58 PM PROCESS MECHANIC Respiratory Rate 13 09/13/2019 3:28 PM PROCESS MECHANIC Oxygen Saturation 93% 09/13/2019 3:28 PM PROCESS MECHANIC Inhaled Oxygen Concentration - - Weight 46.7 kg (103 lb) 09/13/2019 12:38 PM PROCESS MECHANIC Height 165.1 cm (5' 5 ) 09/13/2019 12:38 PM PROCESS MECHANIC Body Mass Index 17.14 09/13/2019 12:38 PM PROCESS MECHANIC Plan of Treatment Health Maintenance Due Date Last Done Comments BONE DENSITY TESTING 1950 MEDICARE AWV 12 MONTHS 1950 HEPATITIS C SCREENING 05/27/1966 DTAP/TDAP/TD VACCINES (1 - Tdap) 1967 PNEUMOCOCCAL VACCINE 50+ (1 of 1 - PCV) 1998 ZOSTER VACCINE (1 of 2) 1998 Respiratory Syncytial Virus (RSV) Vaccine Pt: or over 60 yrs (1 - 1-dose 75+ series) 2023 COVID-19 VACCINE (2023-2 5 season) 2024 INFLUENZA VACCINE (#1) 2024 9, 07/06/2018, 04/11/2013 DEPRESSION SCREENING 09/11/2024 HEPATITIS B VACCINE Aged Out No longe r eligible based on patient's age to complete this topic HIB VACCINE Aged Out No longer eligi ble based on patient's age to complete this topic HPV VACCINE Aged Out No longer eligi ble based on patient's age to complete this topic MENINGOCOCCAL (Group B) VACCINE SHARED DECISION-MAKING Aged Out No longer eligible based on patient's age to complete this topic MENINGOCOCCAL GROUPS A/C/Y/W VACCINE Aged Out No longer eligible b ased on patient's age to complete this topic Medical Devices Explanted Type Area Arch Cushion Press Operator Device Identifier Shelf Expiration Date Model / Serial / Lot Stent Biliary 10fr 9cm Ddnl Bnd Temp Rap Implanted:Qty: 1 on 07/01/2019 by Timmy Thompson MD at [facility] Explanted:Qty: 1 on 09/13/2019 by Timmy Thompson MD at [facility] N/A: Bile [employer]ct [employer] Scimed 03/31/2021 [id number] / / [id number] Stent Pncr 5fr 3cm Pgtl Crv Radopq Sprl Implanted:Qty: 1 on 07/01/2019 by Timmy Thompson MD at [facility] [place] Explanted:Qty: 1 on 09/13/2019 by Timmy Thompson MD at [facility] N/A: Bile Duct [employer] 05/07/2022 [id number] / / [id number] Advance Directives * Full Code (Latest Code Status on File) Date Activated Date Inactivated Comments 07/03/2019 8:37 PM 07/09/2019 3:43 PM * Full Code Date Activated Date Inactivated Comments 07/03/2019 6:06 PM 07/03/2019 8:37 PM Care Teams Capacitor Pack Press Operator Relationship Specialty Start Date End Date Gebrer Hi MD [address] [address] PCP - General 01/21/19
--- OUTSIDE RECORDS SUMMARY | 2024-12-04 13:21 | XMS_ITS | Clinical Summary ---
Author Organization [facility] Address [address] [place] [address] Care Team Providers Care Staff Psychiatrist Name Role Phone David Wharton MD Unavailable [phone] Christiane Sandoval MD Unavailable [phone] Alexus Arevalo NP Primary Care Provider [phone] Allergies Active Allergy Reactions Criticality Noted Date [...] tablet (40 mg total) by mouth daily 4 Active methocarbamoL (ROBAXIN) 500 mg tablet Take [...] stenosis 10/21/2023 Coronary artery disease invo lving hughes heart without angina pectoris 12/20/2022 Overview (12/20/2022): [...] area Assessment & Plan (10/22/2019 1:22 PM SOCIAL MEDIA MARKETER): Continue patient's home tylenol but holding flexeril [...] zoloft Assessment & Plan (10/21/2019 8:22 PM SOCIAL MEDIA MARKETER): Not listed in her chart, but patient is on three different psychiatric meds, including mirtazapine, buspirone, and sertraline. Will also clarify this with PCP tomorrow. Will continue home psych meds. Repeated falls 10/21/2019 Assessment & Plan (10/23/2019 2:34 PM SOCIAL MEDIA MARKETER): Patient fell 4 times in one night, [...] prn Assessment & Plan (10/21/2019 8:23 PM SOCIAL MEDIA MARKETER): Continue home advair, ipratropium, and flonase. Osteoporosis 10/21/2019 Assessment & Plan (12/20/2022 6:22 AM CDT): Continue fosamax Assessment & Plan (10/21/2019 8:24 PM SOCIAL MEDIA MARKETER): Patient takes vitamin D supplements daily and alendronate weekly. - Continue alendronate, especially in the context of tibial plateau fracture. Primary osteoarthritis of right hip 03/12/2018 Essential hypertension 03/10/2014 Assessment & Plan (12/20/2022 6:18 AM CDT): Blood pressure at goal, continue dilt Assessment & Plan (10/21/2019 8:19 PM SOCIAL MEDIA MARKETER): Will hold home lasix and potassium in [...] LDL below 100 11/04/2019 01/31/2024 Line sepsis ([facility]) 11/04/20192022 Pain of left calf 11/04/2019 01/31/2024 Recurrent vomiting 11/04/2019 Assessment & Plan (12/20/2022 6:22 AM CDT): Following with GI On reglan and zofran as needed Sprain of left foot 11/04/2019 12/20/19 Swelling of right lower extremity 11/04/2019 01/31/2024 Localized swelling of left lower extremity 10/23/2019 01/31/2024 Assessment & Plan (10/23/2019 11:41 AM SOCIAL MEDIA MARKETER): Patient had new-onset left lower extremity swelling this AM. Could be secondary to trauma to that leg, but should rule out DVT given recent trauma to that leg. - Got bilateral venous dopplers in her lower extremity which were negative DVT. - Recommend elevation of leg when possible. Severe malnutrition 10/22/2019 03/02/20 Assessment & Plan (10/23/2019 11:39 AM SOCIAL MEDIA MARKETER): Assessed by commercial manager, malnutrition secondary to poor PO intake, most likely from recent illness and altered mental status. - Ordered Ensure Plus supplements with meals. Acute cystitis without hematuria 10/21/2019 12/19/2022 Assessment & Plan (10/23/2019 11:24 AM SOCIAL MEDIA MARKETER): Patient initially worked up for stroke, found [...] 03/02/2024 Assessment & Plan (10/23/2019 11:37 AM SOCIAL MEDIA MARKETER): Patient with worsening mental status over the [...] 01/31/2024 Assessment & Plan (10/22/2019 1:22 PM SOCIAL MEDIA MARKETER): Patient has history of multiple ERCPs for [...] 01/31/2024 Assessment & Plan (10/23/2019 11:38 AM SOCIAL MEDIA MARKETER): Orthopedics consulted. Per their evaluation patient is [...] TACHYCARDIA NOS Shortness of breath 01/25/2014 03/02/20 24 Overview (12/16/2016): SHORTNESS OF BREATH Chest pain 01/25/2014 03/02/2024 Overview (12/16/2016): CHEST PAIN NOS Palpitations 01/25/2014 01/31/2024 Overview (12/16/2016): PALPITATIONS Encounters Date Type Department Care Team Description 11/25/2024 [facility] Subsequent Outreach [facility] [address] [place] [id number] Cecilia Garcia 11/22/2024 TCC Subsequent Outreach [facility] [address] [place] [id number] Cecilia Garcia from Last 3 Months Immunizations Immunization Administration Dates Next Due Hep A, Unspecified 06/15/2015,07/21/2014 Hep B Vaccine 10/31/2000,09/26/2000 Influenza, Quadrivalent, Hig h Dose, Preservative Free, Intrr 06/15/2023,06/20/2022,06/11/2020,05/30 Influenza, Quadrivalent, Spl it, Intramuscular 07/06/2018 Influenza, Trivalent, Preser vative Free, Intramuscular 04/11/2013 Influenza, Unspecified 08/26/2021,2018,06/11/2019,07/06,05/08/2018,05/25/2017,07/07/2016 ,05/24/2016,06/15/2015,07/21/2014,09/2012 Moderna SARS-CoV-2 Monovalen t Vaccination (12+ YRS) 08/23/2021 Pfizer SARS-CoV-2 Monovalent Vaccination (12+ Yrs) PURPLE 10/29/2020 Pneumococcal Conjugate PCV 13 09/28/2017, 017 Pneumococcal Conjugate, Unspecified 09/11/2007 Pneumococcal Polysaccharide PPV23 07/06/2018 Tdap 03/08/2017 Surgical History Surgery Date Site/Laterality Comments OTHER SURGICAL HISTORY 2009 Surgery for Carpal Tunnel bilat OTHER SURGICAL HISTORY Laminectomy X 3 CERVICAL FUSION 2008 Cervical Fusion NV TOTAL ABDOMINAL HYSTERECT W/WO RMVL TUBE OVARY Hysterectomy - (Added by TW Conv) NV APPENDECTOMY Appendectomy - (Added by TW Conv) WRIST SURGERY Wrist Surgery - (Added by TW Conv) NV GONZALES W/O FACETEC FORAMOT/DSC 09/12 VRT SGM CRV Laminectomy Lumbar - (Added by TW Conv) NECK SURGERY Neck Surgery - (Added by TW Conv) HYSTERECTOMY 09/11/1972 - 09/10/1973 Total hysterectomy OOPHORECTOMY 09/11/1972 - 09/10/1973 Bilateral COLONOSCOPY Medical History Medical History Date Comments Chronic obstructive pulmonary disease (HCC) COPD Chronic back pain COPD (chronic obstructive pulmonary disease) (HC C) CHF (congestive heart failure) (HCC) HTN (hypertension) Diabetes mellitus (HCC) Gastroenteritis PUD (peptic ulcer disease) DVT (deep venous thrombosis) (HCC) Colon polyp Family History * Patient is adopted Medical History Relation Name Comments Unknown Family History Other Breast cancer Neg Hx Relation Name Status Comments Other Social History Tobacco Use Types Packs/Day Years Used Date Smoking Tobacco: Former Cigarettes Smokeless Tobacco: Never Tobacco Cessation:Counseling Given: Not Answered Comments:5 cigarettes per day Alcohol Use Standard Drinks/Week Comments Yes 0 (1 standard drink = 0.6 oz pure alcohol) one glass of wine every night with her [facility] Reclogities Answer Date Recorded In the past 12 months has e [employer], gas, oil, or water [employer] threatened to shut off services in your [...] 03/28/2024 How often do you attend chur ch or adventist services? 1 to 4 times per year 03/28/2024 Do you belong to any clubs o r organizations such as yarsani groups, unions, fraternal or athletic groups, or [...] place to sleep or slept in a fci (including now)? No 11/28/2023 PHQ-9 Answer Date [...] any time in the past 12 m [facility], were you homeless or living in a fci (including now)? No 03/28/2024 Personal Safety Answer Date Recorded Have you ever been in or are you currently in a harmful physical or emotional relationship or is someone making you feel afraid or unsafe? Denies 06/09/2024 Comments No Sex and Gender Information Value Date Recorded Sex Assigned at Not on file Legal Sex Female 2:17 AM SOCIAL MEDIA MARKETER Gender Identity Female 09/25/2023 11:55 PM SOCIAL MEDIA MARKETER Sexual Orientation Not on file Obstetrics History Para Term AB IAB SAB Ectopic Multiple Livin g Live Births 3 2 2 Date Outcome GA Total Labor Labor/2nd/3rd Weight Sex Type Anes PTL Yesica A1 A5 Name Clin Term Term Last Filed Vital Signs Vital Sign Reading [...] 05/29/2024 10:00 AM CDT Plan of Treatment Health Maintenance Due Date Last Done Comments Albumin Creatinine Ratio, Urine 1950 Hepatitis C Screening 1950 Dilated Eye Exam 1950 Foot Exam 1950 Zoster Vaccine (1 of 2) 1998 Well Visit 65+ 2013 Hemoglobin A1C 05/07/2024 11/07/2023, 05/14, 01/28/2021, Additional history exists Covid-19 Vaccine ( season) 2024 07/07/2022, 07/05/2022, 01/10/2022, Additional history exists Influenza Vaccine (#1) 2024 , 07/07/2022, 07/05/2022, Additional history exists Lipid Panel 03/27/2025 03/27/2024, 10/12, 01/25/2021, Additional history exists Fall Risk Assessment 04/22/2025 04/22/2024 Depression Screening 05/29/2025 05/29/2024, 05/29/2024, 02/27/2024, Additional history exists eGFR 06/09/2025 06/09/2024, 04/12, 04/21/2024, Additional history exists Osteoporosis Screening-Bone Density Scan 12/18/2025 12/19/2023, 05/22/2017 DTaP/Tdap/Td Vaccine (2 - Td or Tdap) 03/08/2027 03/08/2017 Hepatitis B Screening Completed 10/31/2000, 001 Pneumococcal vaccine 65+ Completed 018, 09/28/2017, 03/08/2017, Additional history exists Breast Cancer Screening-Mammogram Discontinued 024, 04/07/2017 Procedures Procedure Name Priority Date/Time Associated Diagnosis [...] state HEMOGLOBIN A1C Routine 11/07/2023 6:27 AM SOCIAL MEDIA MARKETER from Last 3 Months or Most Recently [...] MD LAB BLOOD ORDERABLES Fi nal Result [facility] [address] [facility] Department [place] [address] * (ABNORMAL) Screening Mammogram Bilateral W Matt [...] the left breast on mammogram. Alexus Arevalo NP IMG MAMMO PROCEDURES Final Result * Lipid [...] on 2018. Triglycerides 74 <=149 mg/dL MELISSA SHRESTHA Comment: Interpretive Data Ages [...] 2018. LDL, calculated 73 <=129 mg/dL MELISSA Comment: Interpretive Data Ages < [...] on 2018. Non-HDL Cholesterol 88 mg/dL MELISSA Comment: Interpretive Data Ages < [...] revised on 2018. Chol/HDL ratio 3 MELISSA Blood 03/27/2024 4:40 PM CDT 03/27/2024 4:44 PM CDT us Wan Dodge MD LAB BLOOD ORDERABLES Final Result MELISSA MH [address] [facility] Department [place] [address] * Dexa Axial Skeleton Bone Density 1 [...] Patient has taken/is taking vitamin-D and calcium. Template Maker/Model: [employer] A (S/N [id number]) CLINICAL INFORMATION: Current height: 62 inches Maximum [...] Yue Shepard M.D. TW: TW Report ID: [id number] Reading Location: [id number] Procedure Note Yue Shepard MD - 12/19/2023 EXAM DESCRIPTION: DEXA AXIAL SKELETON BONE DENSITY 1 OR MORE SITES REASON FOR STUDY: 73 y/o year old F with given history of: Post menopausal status. History of prior fracture, smoking and rheumatoid arthritis. Patient has taken/is taking vitamin-D and calcium. Template Maker/Model: [employer] A (S/N [id number]) CLINICAL INFORMATION: Current height: 62 inches Maximum [...] Electronically signed by Yue Shepard M.D. TW: LAUREN Report ID: [id number] Reading Location: [place] [address] Prerna Guardado NP IM DXA PROCEDURES Final Result * (ABNORMAL) Hemoglobin A1c (11/07/2023 6:27 AM SOCIAL MEDIA MARKETER) [facility] Hgb A1C 5.7(H) 4.0 - 5.6 % MELISSA SHRESTHA Estimated Average Glucose 117 mg/dL MELISSA SHRESTHA Comment: The ADA recommends reporting an estimated Average Glucose (eAG) with all Hemoglobin A1c results using the equation derived from a study of 507 normal and diabetic adults. Minority populations were underrepresented and children were not included. (Diabetes Care 31:9761-0544, 2008). The eAG is not equivalent to a fasting glucose. Blood 11/07/2023 6:27 AM SOCIAL MEDIA MARKETER 11/07/2023 7:04 AM SOCIAL MEDIA MARKETER us Jag Fox MD LAB BLOOD ORDERAB LES Final Result MELISSA [address] [facility] Department [place] [address] from Last 3 Months or Most Recently Relevant to Health Maintenance Insurance [facility] MEDICARE [facility] Address: [facility] [address] [place] [address] [facility] MEDICARE ADVANTAGE [employer] MEDICARE [facility] Address: [address] [address] [place] [address] Advance Directives For more information, please contact: [phone] Documents on File Type Date Recorded Patient Senior Piping Designer Expl anation ADVANCE DIRECTIVE 06/12/2023 12:48 PM Beronica r of It Security Manager-Medical ADVANCE DIRECTIVE 02/05/2012 12:00 AM BERONICA R OF [employer]ET [employer] FINANCIAL/MEDICAL * Full Code (Latest Code Status [...] 1:03 PM 02/07/2024 4:45 PM Care Teams Staff Psychiatrist Relationship Specialty Start Date End Date Alexus Arevalo NP [address] [place] [address] PCP - General Family Medicine 03/18/24 David Wharton MD [address] [address] Consulting Physician Cardiovascular Disease 10/24/23 Christiane Sandoval MD [address] [address] Consulting Physician Gastroenterology 02/13/24
--- OUTSIDE RECORDS SUMMARY | 2024-12-04 13:21 | XMS_ITS | Clinical Summary ---
Author Organization [facility] Address [address], [facility] [address] [place] [address] Phone Care Team Providers Care Hemodialysis Lab Technician Name Role Phone Bello Patterson DO Unavailable Allergies Active Allergy Reactions Criticality Noted Date Comments Fluticasone-Salmeterol Unknown Albuterol Unknown inhaler Aspirin Unknown Sulfamethoxazole-Trimethoprim Unknown Septra Citalopram Hydrobromide Unknown Duloxetine Hcl Unknown Fluticasone Unknown Gabapentin Unknown Latex Unknown Lisinopril Unknown Naproxen Unknown Nsaids Unknown Penicillins Unknown Sulfa Antibiotics Unknown Tramadol Hcl Unknown Verapamil Unknown Medications oxyCODONE-aceta minophen (PERCOCET) 7.5-325 MG Tablet Take 1 Tab by mouth every 4 hours as needed. Active baclofen (LIORESAL) 10 MG Tablet Take by mouth 3 times daily. Active amitriptyline (ELAVIL) 10 MG Tablet Take 10 mg by mouth nightly. Active hydrochlorothia zide (MICROZIDE) 12.5 MG Capsule Take by mouth. 3 times weekly Active Montelukast Sodium Powder by Does not apply route. 1 hs Active tiotropium (SPIRIVA HANDIHALER) 18 MCG Capsule take by inhalation daily. Active Multiple Vitamin (MULTIVITAMINS) Capsule Take by mouth daily. Active bisacodyl EC (BISACODYL) 5 MG Tablet Delayed Response Take by mouth as needed for Constipation. Active omeprazole (PRILOSEC) 40 MG CAPSULE DELAYED RELEASE TAKE ONE CAPSULE BY MOUTH TWICE DAILY 180 Cap 3 6 Active polyethylene glycol (GLYCOLAX) Powder MIX THE ENTIRE BOTTLE WITH 64 OUNCES OF A CLEAR LIQUID. 255 g 6 6 Active metoclopramide (REGLAN) 10 MG Tablet Take 1 Tab by mouth 2 times daily. 60 Tab 3 6 Active sucralfate (CARAFATE) 1 GM Tablet Take 1 Tab by mouth 4 times daily. 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 GERD (gastroesophageal reflux disease) Overview (09/02/2015): With severe esophageal dysmotility Social History Tobacco Use Types Packs/Day Years Used Date Smoking Tobacco: Never Assessed Comments Unknown Sex and Gender Information Value Date Recorded Sex Assigned at Not on file Legal Sex Female 12:17 AM CDT Gender Identity Not on file Sexual Orientation Not on file Plan of Treatment Health Maintenance Due Date Last Done Comments Hepatitis C Virus (HCV) Screening 1950 TdaP Immunization 1950 Pneumococcal Immunization (5 0+ years) (1 of 1 - PCV) 1998 Zoster Immunization (1 of 2) 1998 Respiratory Syncytial Virus (RSV) Immunization (Adult) (1 - 1-dose 75+ series) 2023 Influenza Immunization (#1) 2024 SARS-COV-2 Immunization ( season) 2024 Colonoscopy High Risk Discontinued 01/17/2019 , 10/22/2015, 06/12/2014 Colonoscopy Discontinued 01/17/2019, 10/22/2015, 06/12/2014 Colorectal Cancer Screening Discontinued Cologuard Discontinued Hepatitis B Immunization Aged Out No longer eligible based on patient's age to complete this topic Immunochemical Fecal Occult Blood Discontinued Meningococcal Immunization (ACWY) Aged Out No longer eligible based on patient's age to complete this topic Rotavirus Immunization Aged Out No lo nger eligible based on patient's age to complete this topic Procedures Procedure Name Priority Date/Time Associated Diagnosis Comments HM COLONOSCOPY Routine 01/17/2019 from Last 3 Months or Most Recently Relevant to Health Maintenance Results * HM COLONOSCOPY (01/17/2019) Bello Patterson DO PROCEDURE/MINOR SURGICAL ORDERA BLES Final Result from Last 3 Months or Most Recently Relevant to Health Maintenance Insurance MEDICARE MEDICAID [place] Care Teams Hemodialysis Lab Technician Relationship Specialty Start Date End Date Bello Patterson DO Gastroenterology 11/02/15
--- OUTSIDE RECORDS SUMMARY | 2024-12-04 13:21 | XMS_ITS | Encounter Summary ---
Author Organization [facility] Address [address] [place] [address] Care Team Providers Care Client Resolution Specialist Name Role Phone David Wharton MD Unavailable [phone] Christiane Sandoval MD Unavailable [phone] Alexus Arevalo NP Primary Care Provider [phone] Encounter Details Date Type Department Care Team (Late st Contact Info) Description 04/22/2024 Documentation [facility] Case Management [address] [place] [address] Latoya Gomes RN Social History Tobacco Use Types Packs/Day Years Used Date Smoking Tobacco: Light Smoker Cigarettes Smokeless Tobacco: Never Comments:5 cigarettes per da y Alcohol Use Standard Drinks/Week Comments Yes 0 (1 standard drink = 0.6 oz pure alcohol) one glass of wine every night with her [facility] [place] Answer Date Recorded In the past 12 months has [employer], gas, oil, or water [employer] threatened to shut off services in your [...] How often do you attend chur or moravian services? 1 to 4 times per year 03/28/2024 Do you belong to any clubs o r organizations such as buddhism groups, unions, fraternal or athletic groups, or school groups? No 03/28/2024 How often do you attend meet ings of the clubs or organizations you belong to? Never 03/28/2024 Are you , , di vorced, , never , or living with a partner? 03/28/2024 AUDIT-C Answer Date Recorded Q1: How often do you have a drink containing alc ohol? Monthly or less 02/08/2024 Q2: How many drinks containi ng alcohol do you have on a typical day when you are drinking? 1 or 2 02/08/2024 Q3: How often do you have si x or more drinks on one occasion? Weekly 02/08/2024 Overall Financial Resource Strain (CARDIA) Answe r Date Recorded How hard is it for you to pa y for the very basics like food, housing, medical care, and heating? Not hard at all 03/28/2024 PHQ-2 Answer Date Recorded PHQ-2 Total Score 0 02/27/2024 Hunger Vital Sign Answer Date Recorded Within [...] place to sleep or slept in a assisted (including now)? No 11/28/2023 Housing Stability Vital Sign Answer Migue e Recorded In the last 12 months, was t here a time when you were not able to pay the mortgage or rent on time? No 03/28/2024 In the past 12 months, how m any times have you moved where you were living? 0 03/28/2024 At any time in the past 12 m [facility], were you homeless or living in a assisted (including now)? No 03/28/2024 Personal Safety Answer Date Recorded Have you ever been in or are you currently in a harmful physical or emotional relationship or is someone making you feel afraid or unsafe? Denies 04/20/2024 Comments No Sex and Gender Information Value Date Recorded Sex Assigned at Not on file Legal Sex Female 2:17 AM CUSTOMS BROKERAGE AGENT Gender Identity Female 09/25/2023 11:55 PM CUSTOMS BROKERAGE AGENT Sexual Orientation Not on file documented as of this encounter Plan of Treatment Not on file documented as of this encounter Visit Diagnoses Not on filedocumented in this encounter Additional Health Concerns Infection Onset Date Last Indicated Resolved Time COVID: Recovered Comment:Added based on recent COVID infection. 04/08/2024 04/08/2024 07/07/2024 3:05 AM C DT COVID: Suspected 05/03/2024 05/03/2024 05/04/2024 3:05 AM CDT documented as of this encounter Care Teams Client Resolution Specialist Relationship Specialty Start Date End Date Alexus Arevalo NP [address] [place] [address] PCP - General Family Medicine 03/18/24 David Wharton MD [address] [facility] [address] [place] [address] [address] Consulting Physician Cardiovascular Disease 10/24/23 Christiane Sandoval MD [address] [address] Consulting Physician Gastroenterology 02/13/24 documented as of this encounter
--- OUTSIDE RECORDS SUMMARY | 2024-12-04 13:21 | XMS_ITS ---
Author Organization [facility] Address [address] [place], [place] [address] Care Team Providers Care Clerk Telegraph Service Name Role Phone MARIMAR STAPLES [phone] REASON FOR VISIT R ft swollen ankle Encounters Encounter Location Date Provider Diagnosis [facility] [address] [place], [place] [id number] 04/18/2024 MARIMAR STAPLES Plan Of Treatment No Information Progress Notes * Cm WARDaDOB:1950 ([age] yo F)Acc No.[id number]:04/18/2024 Progress Notes Patient: Aneta MCINTYRE Provider: Collins Staples DPM :1950 A ge:73 Y S ex:Female Date:04/18/2024 Address:[address] [place] [address], [address] [facility], [facility] Subjective: * Chief Complaints: * 1 . R ft swollen ankle. * Medical History: Objective: * Vitals: Assessment: Plan: * Treatment: * Billing Information: * Visit Code: * Procedure Codes: * Electronic signature of AWILDA SOLIMAN DPM on 12/04/2024 at 01:20 PM CDT Sign off status: Pending * Provider: Collins Staples DPM Date: 04/18/2024 Generated for Alexx eli/Lance/Jane on: 0 12/04/2024 01:20 PM CDT
--- OUTSIDE RECORDS SUMMARY | 2024-12-04 13:21 | XMS_ITS | Clinical Summary ---
Author Organization [facility] Address [facility] [place] [address] Care Team Providers Care String Cutter Name Role Phone Unavailable Primary Care Provider Unavailabl e Allergies Active Allergy Reactions Criticality Noted Date Comments Albuterol Other (see comment) Low 04/05/2019 inhaler Heart races Patient states able to take if given with atrovent. Aspirin Rash,Unknown Medium 04/05/2019 Pt states she takes a low dose aspirin Citalopram Unknown,GI Upset Medium 04/05/2019 Duloxetine Unknown,Hives Medium 04/05/2019 Gabapentin Unknown Medium 04/05/2019 Latex Unknown,Rash Medium 04/05/2019 Lisinopril Unknown,Dizziness Medium 04/05/2019 Naproxen Unknown Medium 04/05/2019 Nsaids GI Upset,Unknown 04/05/2019 Patient has stomach ulcers, NSAIDS irritate Penicillins Anaphylaxis,Unknown, Hives High 04/05/2019 Doesn't remember the rxn Sulfamethoxazole-Trimet hoprim Unknown Medium 04/05/2019 Tramadol GI Upset,Unknown,Hives Medium 04/05/2019 Irritates stomach ulcers Verapamil Unknown,Hives Medium 08/24/2019 Medications ipratropium-albute rol 0.5-2.5 (3) MG/3ML Solution Take 3 mLs by nebulization 2 (two) times a day. Active fluticasone propionate 50 MCG/ACT nasal spray 1 spray by Each Nostril route 2 (two) times a day. Active polyethylene glycol packet Take 240 mLs (17 g total) by mouth every other day. Dissolve powder in 240 mL water Active olopatadine 0.1 % ophthalmic solution Place 1 drop into both eyes daily. Active budesonide-formote rol 160-4.5 MCG/ACT inhaler Inhale 1 puff into the lungs 2 (two) times daily. Active vitamin D3, cholecalciferol, 1000 UNIT Tab tablet Take 1 tablet (25 mcg total) by mouth daily. Active albuterol sulfate HFA 108 (90 Base) MCG/ACT inhaler Inhale 2 puffs into the lungs 4 (four) times daily as needed for Wheezing. Active EPINEPHrine HCl, Anaphylaxis, (EPIPEN IJ) Inject into the muscle as needed. Active nitroglycerin 0.[address] 1 tablet (0.4 mg total) under the tongue every 5 (five) minutes as needed for Chest Pain. Active melatonin 5 MG tablet Take 1 tablet (5 mg total) by mouth nightly at bedtime. 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 TAKE 1 TABLET BY MOUTH EVERY DAY AT BEDTIME 90 tablet 14 10/12/19 23 Active dilTIAZem (CARDIZEM) 30 MG tabletIndications: Essential hypertension,Coron saul artery disease of 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 TAKE 1 TABLET BY MOUTH EVERY 12 HOURS 60 tablet 14 10/12/19 23 Active mirtazapine (REMERON) 30 MG tabletIndications: Insomnia, unspecified type,Severe malnutrition ([facility]HS/HCC) TAKE 1 TABLET BY MOUTH EVERY DAY AT BEDTIME 60 tablet 14 10/12/19 23 Active ASPIRIN LOW DOSE 81 MG tabletIndications: Essential hypertension,Coron saul artery disease of 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 TAKE 1 TABLET BY MOUTH EVERY DAY 30 tablet 14 10/12/19 23 Active busPIRone (BUSPAR) 7.5 MG tabletIndications: Insomnia, unspecified type TAKE 1 TABLET BY MOUTH 2 TIMES A DAY 60 tablet 14 10/12/19 23 Active XARELTO 20 MG Tab tabletIndications: Essential hypertension,Coron saul artery disease of 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 TAKE 1 TABLET BY MOUTH EVERY DAY 30 tablet 14 10/12/19 23 Active montelukast (SINGULAIR) 10 MG tabletIndications: Seasonal rhinitis TAKE 1 TABLET BY MOUTH EVERY DAY AT BEDTIME 30 tablet 14 11/01/19 23 Active baclofen (LIORESAL) 10 MG tabletIndications: Chronic midline low back pain without sciatica TAKE 1 TABLET BY MOUTH 3 TIMES A DAY 90 tablet 14 11/19/19 23 Active ondansetron (ZOFRAN-ODT) 4 MG disintegrating tabletIndications: Gastroesophageal reflux disease, unspecified whether esophagitis present DISSOLVE 1 TABLET UNDER TONGUE EVERY 4 HOURS NEEDED 90 tablet 14 01/13/20 23 Active metoclopramide (REGLAN) 10 MG tabletIndications: Gastroesophageal reflux disease, unspecified whether esophagitis present TAKE 1 TABLET BY MOUTH 2 TIMES A DAY 60 tablet 2 01/21/20 23 Active loratadine (CLARITIN) 10 MG tabletIndications: Seasonal allergic rhinitis, unspecified trigger TAKE 1 TABLET BY MOUTH EVERY DAY 30 tablet 2 01/21/20 23 Active sertraline (ZOLOFT) 100 MG tabletIndications: Depression TAKE 1 TABLET BY MOUTH EVERY DAY 90 tablet 1 02/01/20 23 Active pantoprazole EC (PROTONIX) 40 MG tabletIndications: Gastroesophageal reflux disease, unspecified whether esophagitis present TAKE 1 TABLET BY MOUTH 2 TIMES A DAY (BEFORE MEALS) 60 tablet 14 02/15/20 23 Active sucralfate (CARAFATE) 1 G tabletIndications: Gastroesophageal reflux disease, unspecified whether esophagitis present TAKE 1 TABLET BY MOUTH 4 TIMES A DAY 120 tablet 14 02/15/20 23 Active V-R NON-ASPIRIN 500 MG tabletIndications: Chronic right hip pain TAKE 1 TABLET BY MOUTH 4 TIMES A DAY (WITH MEALS AND AT NIGHT) 160 tablet 14 03/03/20 23 Active oxyCODONE immediate release (ROXICODONE) 10 MG immediate release tabletIndications: Chronic Pain Indications: Chronic Pain TAKE 1 TABLET BY MOUTH EVERY 6 HOURS NEEDED (FOR CHRONIC PAIN) 120 tablet 03/23/20 23 Active Active Problems Problem Noted Date Diagnosed Date Lumbar radiculopathy 06/23/2022 On supplemental oxygen therapy 02/22/2022 Insomnia, unspecified type 12/17/2021 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 12/17/2021 GERD (gastroesophageal reflux disease) 2 Overview (12/14/2021): With severe esophageal dysmotility Mechanical complication of esophagostomy ([facility]) 12/14/2021 Chronic back pain 12/14/2021 Gastroenteritis 12/14/2021 Seasonal rhinitis 12/14/2021 Essential hypertension 12/14/2021 Type 2 diabetes mellitus ([facility]) 12/14 Pain in thoracic spine 12/14/2021 Pulmonary nodule 12/14/2021 Nicotine dependence 12/21/2020 Hyperthyroidism 09/22/2020 Thyroid nodule 09/22/2020 Acute and chronic respirator y failure with hypoxia ([facility]) 08/05/2020 Bacteremia due to Pseudomonas 08/05/2020 Community acquired pneumonia, bilateral 08/05/20 20 Exercise hypoxemia 08/05/2020 Sleep-related hypoxia 08/05/2020 Suspected 2019-nCoV infection 08/05/2020 Syncope due to sick sinus syndrome ([facility]) 08/05/2020 Obstructive chronic bronchit is with exacerbation ([facility]) 11/04/2019 Constipation in pediatric patient 11/04/2019 Dyslipidemia, goal LDL below 100 11/04/2019 Has used tobacco within prior three months 11/04 Line sepsis ([facility]) 11/04/2019 Pain of left calf 11/04/2019 Recurrent vomiting 11/04/2019 Sprain of left foot 11/04/2019 Swelling of right lower extremity 11/04/2019 Colon polyps 11/04/2019 Overview (02/22/2022): With normal transaminases with possible history of papillary stenosis with previous ERCP and pancreatic common bile duct sent placements Localized swelling of left lower extremity 10/23 Overview (02/22/2022): Last Assessment & Plan: Patient had new-onset left lower extremity swelling this AM. Could be secondary to trauma to that leg, but should rule out DVT given recent trauma to that leg. - Got bilateral venous dopplers in her lower extremity which were negative DVT. - Recommend elevation of leg when possible. Severe malnutrition ([facility]) 10/22/2019 Overview (02/22/2022): Last Assessment & Plan: Assessed by lacquer shader, malnutrition secondary to poor PO intake, most likely from recent illness and altered mental status. - Ordered Ensure Plus supplements with meals. Acute cystitis without hematuria 10/21/2019 Overview (02/22/2022): Last Assessment & Plan: Patient initially worked up for stroke, found [...] to discharge on cephalexin 500 mg BID. Chronic obstructive pulmonary disease ([facility] H HS/HCC) 10/21/2019 Overview (02/22/2022): COPD Last Assessment & Plan: Continue home advair, ipratropium, and flonase. Delirium 10/21/2019 Overview (02/22/2022): Last Assessment & Plan: Patient with worsening mental status over the [...] has not had trouble with PO intake. Depression 10/21/2019 Overview (02/22/2022): Last Assessment & Plan: Not listed in her chart, but patient is on three different psychiatric meds, including mirtazapine, buspirone, and sertraline. Will also clarify this with PCP tomorrow. Will continue home psych meds. Osteoporosis 10/21/2019 Overview (02/22/2022): Last Assessment & Plan: Patient takes vitamin D supplements daily and alendronate weekly. - Continue alendronate, especially in the context of tibial plateau fracture. Repeated falls 10/21/2019 Overview (02/22/2022): Last Assessment & Plan: Patient fell 4 times in one night, [...] permit use of wheelchair within the facility. Tibial plateau fracture, left, closed, initial e ncounter 10/21/2019 Overview (02/22/2022): Last Assessment & Plan: Orthopedics consulted. Per their evaluation patient is not an operative candidate. - Patient to wear hinged knee brace at all times unless showering until orthopedics follow up scheduled with Dr Amaro on 11/07/2019. - Patient is ROM as tolerated in LLE and non-weight bearing in LLE. - Tertiary exam to be performed on 10/22/2019 - no further interventions plans. Common bile duct stricture 10/21/2019 Overview (02/22/2022): Last Assessment & Plan: Patient has history of multiple ERCPs for biliary stricture with concern for duodenal mass. - Actual nature of this medical issue is currently unclear and patient could not provide more detail. Will call PCP tomorrow. - Continue home sucralfate, and pantroprazole for right now. - Holding home metoclopramide unless nauseated due to concern that it is contibuting to delirium. 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 Post-op pain 07/02/2019 Primary osteoarthritis of right hip 03/12/2018 Arthritis 03/10/2014 Numbness of foot 03/10/2014 Pain in buttock 03/10/2014 Chronic right hip pain 03/10/2014 Lumbago 03/10/2014 Chest pain 01/25/2014 Overview (02/22/2022): CHEST PAIN NOS Palpitations 01/25/2014 Overview (02/22/2022): PALPITATIONS Pure hypercholesterolemia 01/25/2014 Overview (02/22/2022): PURE HYPERCHOLESTEROLEM Shortness of breath 01/25/2014 Overview (02/22/2022): SHORTNESS OF BREATH Tachycardia 01/25/2014 Overview (02/22/2022): TACHYCARDIA NOS Resolved Problems Problem Noted Date Diagnosed Date Resolved Date Colon polyps 12/14/2021 02/22/2022 Overview (12/14/2021): With normal transaminases with possible history of papillary stenosis with previous ERCP and pancreatic common bile duct sent placements Common bile duct stricture 12/14/2021 0 02/22/2022 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 - Can give lidocaine patch if patient has increased pain overnight. - Restarted oxycodone 5 mg PRN for pain, although this correlated with increase in patient somnolence. - CTM mental status and pain. GERD (gastroesophageal reflux disease) 10/21/2019 02/22/2022 Overview (02/22/2022): With severe esophageal dysmotility Essential hypertension 03/10/201409/22 Overview (02/22/2022): Last Assessment & Plan: Will hold home lasix and potassium in the setting of acute infection. Has not been hypertensive during this admission. Immunizations Name Administration Dates Next Due Fluzone High Dose - >Age 65 (Prefilled Syringe) 06/15/2023,07/05/2022,06/11/2020,2019 Hepatitis A (Generic) 06/15/2015,07/21/2014 Hepatitis B (Generic: Adult) 10/31/2000,09/26/19 01 Influenza (Generic) 04/11/2013 Influenza Adult (Generic) 08/26/2021,,06/07/2019,2017,05/08/2018,05/25/2017,07/07/2016,0 05/24/2016,06/15/2015,07/21/2014 MODERNA COVID-19 (12+) MRNA, LNP-S, PF, 100 MCG/ 0.5 ML DOSE 08/23/2021 PFIZER COVID-19 (ORIGINAL FORMULATION, PURPLE CAP) mRNA, LNP-S, PF, 30 MCG/0.3 ML DOSE 11/29/2020,11/08/2020,10/29/2020,2020 Pneumococcal (Generic) 09/11/2007 Pneumococcal (Pneumovax 23) 07/06/2018 Pneumococcal (Prevnar 13) 09/28/2017,03/08/2017 Tdap (Generic) 03/08/2017 Social History Tobacco Use Types Packs/Day Years Used Date Smoking Tobacco: Every Day Cigarettes Smokeless Tobacco: Never Comments:5 cigarettes per da y; also smokes cigars Alcohol Use Standard Drinks/Week Comments Yes 0 (1 standard drink = 0.6 oz pur e alcohol) drinks 1 glass of wine per day Comments No Sex and Gender Information Value Date Recorded Sex Assigned at Not on file Legal Sex Female 8:21 PM CDT Gender Identity Not on file Sexual Orientation Not on file Occupation Industry Job Start Date Job End Date [employer]IRED [employer]ING [employer] Not on file Not on file Not on file Last Filed Vital Signs Vital Sign Reading Time Taken Comments Blood Pressure 110/68 01/17/2023 12:24 PM CDT Pulse 110 01/17/2023 12:24 PM CDT Temperature 36.5 C (97.7 F) 01/17/2023 12:24 PM CDT Respiratory Rate 22 01/17/2023 12:24 PM CDT Oxygen Saturation 95% 01/17/2023 12:24 PM CDT Inhaled Oxygen Concentration - - Weight 44.4 kg (97 lb 14.4 oz) 09/20/2022 10:46 AM VP & GENERAL COUNSEL Height 160 cm (5' 3 ) 07/07/2022 8:00 AM CDT Body Mass Index 17.34 07/07/2022 8:00 AM CDT Plan of Treatment Health Maintenance Due Date Last Done Comments ASCVD LDL 1948 Kidney Health Evaluation 1948 Lipid Panel 1948 PHQ-2 (Physician [place]) 1960 Diabetes: Retinopathy Eye Exam 1966 Hepatitis C 1966 Zoster Vaccines (1 of 2) 1998 Annual Medicare Wellness Visit 2013 RSV Immunization or 60+ Years (1 - 1-dose 75+ series) 2023 Hemoglobin A1C 05/07/2024 11/07/2023, 05/14, 11/02/2021, Additional history exists COVID-19 Vaccine ( season) 2024 07/05/2022, 01/10/2022, 08/23/2021, Additional history exists Influenza Adult (#1) 2024 06/15/2023, 07/05/2022, 08/26/2021, Additional history exists PHQ-2 (Physician [place]) 09/11/2024 DTaP, Tdap and Td Vaccines (2 - Td or Tdap) 03/08/2027 03/08/2017 Pneumococcal Vaccine: 65+ Years Completed 07/06/2018, 09/28/2017, 03/08/2017 Dexa Scan (General) Completed 12/19/2023 Meningococcal B Vaccine Aged Out No l onger eligible based on patient's age to complete this topic Meningococcal Vaccine Aged Out No kassy renard eligible based on patient's age to complete this topic RSV Immunizations Under 20 Months Aged Out No longer eligible based on patient's age to complete this topic Procedures Procedure Name Priority Date/Time Associated Diagnosis Comments OUTSIDE LAB (SCAN ORDER) Routine 11/02/2021 from Last 3 Months or Most Recently Relevant to Health Maintenance Results * OUTSIDE LAB (SCAN) (11/02/2021) HGB A1C 5.9 % HS ONBASE 11/02/2021 us Documents Scanned SCANNING Final Result HS ONBASE from Last 3 Months or Most Recently Relevant to Health Maintenance Insurance MEDICAID Member Subscriber Plan / Payer (Ef fective 2020-Present) Name:NORMA WARD Relation to Subscriber:Self Name:Norma Ward Payer ID:Not on file Group ID:Not on file Type:Not on file Address: [facility] [id number] [address] Advance Directives Documents on File Type Date Recorded Patient Design Editor Expl anation Advance Directive (Activated) 01/07/2022 2:35 PM POLST * Full Code (Latest Code Status on File) Date Activated Date Inactivated Comments 01/17/2023 12:19 PM * Full Code Date Activated Date Inactivated Comments 01/12/2022 2:36 PM 07/07/2022 7:47 AM
--- OUTSIDE RECORDS SUMMARY | 2024-12-04 13:21 | XMS_ITS | Data Portability ---
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 Plan of Treatment Reminders Order Date Submit Date Provider Last Modified By Organization Details Last Modified Time Details Appointments None recorded. Lab SARS CoV 2 RNA (COVID-19) , QL, microbiology soil scientist-PCR, respirator y specimen - pre procedure (PFT, Complete) COVID 19 Test 2021 022 nadya [facility] (Lab), [address], [place], [address], 2 08:24:11 SARS CoV 2 RNA (COVID-19) , QL, microbiology soil scientist-PCR, respirator y specimen 2020 [facility] [address], [place], [address], 1 05:03:43 SARS CoV 2 RNA (COVID-19) , QL, microbiology soil scientist-PCR, respirator y specimen 2019 020 [facility] (Lab), [address], [place], [address], 0 11:39:19 Referral None recorded. Procedures pulmonary stress test, simple (PROC) - 6 Minute Walk 2023 024 [facility] Patient Access Centralized Scheduling, Centralized Scheduling, [address] [place], [address], 4 05:01:33 pulmonary stress test, simple (PROC) 2021 022 GLADIS Mercedes [facility] (Cardio Ekg), [address], [place], [address], 3 05:01:38 Surgeries None recorded. Imaging PFT, complete - W/ Post Bronchodil ator Spirometry 2023 024 [facility] Patient Access Centralized Scheduling, Centralized Scheduling, [address] [place], [address], 4 05:01:44 LDCT, chest, for lung cancer screening 2023 024 [facility] Patient Access Centralized Scheduling, Centralized Scheduling, [address] [place], [address], 4 05:01:45 PFT, complete - W/ Post Bronchodil ator Spirometry 2021 022 GLADIS Mercedes [facility] (Cardio Ekg), [address], [place], [address], 3 05:01:38 XR, chest, 2 view 2021 022 GLADIS [facility] ([facility]), [address], [place], [address], 2 12:35:51 PFT, complete - W/ Post Bronchodil ator Spirometry 2020 021 GLADIS Mercedes [facility] (Cardio Ekg), [address], [place], [address], 1 05:03:47 PFT, complete - W/ Post Bronchodil ator Spirometry 2019 020 gonzalo [facility] ([facility]io [facility]), [address], [place], [address], 0 11:39:09 Medication Orders Ventolin HFA 90 mcg/actuat ion aerosol inhaler 2019 INTERFACE Tang Song [facility], [address] [place] [address], [address], 0 10:32:41 Advair Diskus 500 mcg-50 mcg/dose powder for inhalation 2019 INTERFACE Tang Song [facility], [address] [place] [address], [address], 0 10:32:38 albuterol sulfate 2.5 mg/3 mL (0.083 %) solution for nebulizati on 2019 INTERFACE Tang Song [facility], [address] [place] [address], [address], 0 10:32:40 Patient TargetsNo targets recorded. Patient Instructions Encounter Date Encounter Id Patient Instructions Last Modified By Organization Details Last Modified Time 06/11/2020 [id number] allergies: care instructions ajamous Not available 06/11/2020 10:27:08 managing your allergies: care instructions ajamous Not available 06/11/2020 10:27:08 esophageal dilat ion: before your procedure ajamous Not available 06/11/2020 10:31:52 chronic cough: c are instructions ajamous Not available 06/11/2020 10:31:52 gastroesophageal reflux disease (GERD): care instructions ajamous Not available 06/11/2020 10:31:52 chronic obstruct christian pulmonary disease (COPD): care instructions ajamous Not available 06/11/2020 10:27:08 learning about c opd and how to prevent lung infections ajamous Not available 06/11/2020 10:27:08 6 minute walk test* [email or web address] Not avail able 10/20/2020 16:19:15 Quitting Tobacco : Care Instructions ajamous Not available 06/11/2020 10:27:08 chronic obstruct christian pulmonary disease (COPD): care instructions ajamous Not available 06/11/2020 10:27:08 learning about hypoxemia ajamous Not available 06/11/2020 10:31:53 10/15/2020 [id number] allergies: care instructions ajamous Not available 10/15/2020 12:33:55 managing your allergies: care instructions ajamous Not available 10/15/2020 12:33:55 esophageal dilat ion: before your procedure ajamous Not available 10/15/2020 12:35:32 chronic cough: c are instructions ajamous Not available 10/15/2020 12:35:32 gastroesophageal reflux disease (GERD): care instructions ajamous Not available 10/15/2020 12:33:55 chronic obstruct christian pulmonary disease (COPD): care instructions ajamous Not available 10/15/2020 12:33:56 learning about c opd and how to prevent lung infections ajamous Not available 10/15/2020 12:33:56 6 minute walk test* [email or web address] Not availa ble 10/23/2020 12:46:38 chronic obstruct christian pulmonary disease (COPD): care instructions ajamous Not available 10/15/2020 12:35:32 Quitting Tobacco : Care Instructions ajamous Not available 10/15/2020 12:33:55 09/02/2021 [id number] chronic obstruct christian pulmonary disease (COPD): care instructions ajamous Not available 09/02/2021 12:18:18 Quitting Tobacco : Care Instructions ajamous Not available 09/02/2021 12:16:21 allergies: care instructions ajamous Not available 09/02/2021 12:18:17 managing your allergies: care instructions ajamous Not available 09/02/2021 12:18:18 chronic cough: c are instructions ajamous Not available 09/02/2021 12:18:18 esophageal dilat ion: before your procedure ajamous Not available 09/02/2021 12:18:17 gastroesophageal reflux disease (GERD): care instructions ajamous Not available 09/02/2021 12:18:18 chronic obstruct christian pulmonary disease (COPD): care instructions ajamous Not available 09/02/2021 12:16:21 learning about c opd and how to prevent lung infections ajamous Not available 09/02/2021 12:16:21 01/06/2022 [id number] allergies: care instructions ajamous Not available 01/06/2022 11:51:01 managing your allergies: care instructions ajamous Not available 01/06/2022 11:51:01 chronic cough: c are instructions ajamous Not available 01/06/2022 11:51:01 esophageal dilat ion: before your procedure ajamous Not available 01/06/2022 11:52:26 gastroesophageal reflux disease (GERD): care instructions ajamous Not available 01/06/2022 11:52:26 chronic obstruct christian pulmonary disease (COPD): care instructions ajamous Not available 01/06/2022 11:51:02 learning about c opd and how to prevent lung infections ajamous Not available 01/06/2022 11:51:02 Quitting Tobacco : Care Instructions ajamous Not available 01/06/2022 11:51:02 chronic obstruct christian pulmonary disease (COPD): care instructions ajamous Not available 01/06/2022 11:51:02 abnormal weight loss: care instructions ajamous Not available 01/06/2022 11:51:02 01/01/2024 [id number] allergies: care instructions ajamous Not available 01/01/2024 11:10:34 managing your allergies: care instructions ajamous Not available 01/01/2024 11:10:34 chronic cough: c are instructions ajamous Not available 01/01/2024 11:10:34 esophageal dilat ion: before your procedure ajamous Not available 01/01/2024 11:10:34 gastroesophageal reflux disease (GERD): care instructions ajamous Not available 01/01/2024 11:10:34 chronic obstruct christian pulmonary disease (COPD): care instructions ajamous Not available 01/01/2024 11:10:34 learning about c opd and how to prevent lung infections ajamous Not available 01/01/2024 11:10:34 Quitting Tobacco : Care Instructions ajamous Not available 01/01/2024 11:10:34 chronic obstruct christian pulmonary disease (COPD): care instructions ajamous Not available 01/01/2024 11:10:34 abnormal weight loss: care instructions ajamous Not available 01/01/2024 11:10:34 Reason for Referral None Reported. Results Created Date Observation Date Name Description Value Unit Range Abnormal Flag Note LastModifiedBy Organization Detail LastModifiedTime 05/15/20 20 05/15/2020 XR, ribs, unila teral , w/ PA chest No observ ation record ed. [email or web address] Not Available 2019 22:57:43 05/18/20 20 05/18/2020 CT, angio gram, chest , w/wo contr ast No observ ation record ed. [facility] (Rad) [address] [place], [address], 06/09/2020 15:45:47 05/21/20 20 05/21/2020 XR, chest No observ ation record ed. [email or web address] Not Available 2019 15:45:47 05/21/20 20 05/21/2020 imagi ng/di agnos tic resul t No observ ation record ed. [email or web address] Not Available 13:43:37 05/22/20 20 05/22/2020 XR, chest No observ ation record ed. [facility] Not Available 2019 15:45:48 05/22/20 20 05/22/2020 XR, chest No observ ation record ed. [email or web address] Not Available 17:50:23 05/23/20 20 05/23/2020 XR, chest No observ ation record ed. [email or web address] Not Available 17:50:42 07/31/20 20 07/31/2020 XR, chest No observ ation record ed. ajamous Not Available 2019 10:49:04 07/31/20 20 07/31/2020 CT, chest , w/o contr ast No observ ation record ed. [email or web address] Not Available 16:17:21 07/31/20 20 07/31/2020 CT, chest , w/o contr ast No observ ation record ed. [email or web address] Not Available 16:16:49 08/01/20 20 08/01/2020 XR, chest No observ ation record ed. [email or web address] Not Available 16:17:38 08/03/20 20 07/31/2020 (PRADEEP) ankle brach ial index * No observ ation record ed. lexx [facility] (Lab) [address] [place], [address], 08/07/2020 17:15:17 08/04/20 20 08/04/2020 US, thyro id No observ ation record ed. [facility]xx Not Available 17:18:16 08/04/20 20 08/04/2020 XR, chest , 2 view No observ ation record ed. [email or web address] Not Available 16:17:57 08/05/20 20 08/05/2020 imagi ng/di agnos tic resul t No observ ation record ed. [email or web address] Not Available 14:59:17 08/05/20 20 08/05/2020 XR, chest , 2 view No observ ation record ed. [email or web address] Not Available 16:18:20 11/16/19 21 11/15/2020 XR, chest No observ ation record ed. bvokes Not Available 2020 12:35:14 11/16/19 21 11/15/2020 CT, head, w/o contr ast No observ ation record ed. bvokes Not Available 2020 12:35:55 11/16/19 21 11/15/2020 CT, angio gram, chest , w/ contr ast No observ ation record ed. bvokes Not Available 2020 12:37:11 11/18/19 21 11/17/2020 XR, chest No observ ation record ed. [email or web address] Not Available 11:34:35 11/18/19 21 XR, chest No observ ation record ed. [email or web address] Not Available 11:39:40 01/07/20 22 01/06/2022 XR, chest , 2 view EXAMIN ATION: PA AND LATERA L CHEST Access ion: [id number] Exam date/t daina: 022 11:11 AM Reason For Exam: [id number] 05: Chroni c obstru ctive lung diseas e Compar edy: Techni que: 2 views. Findin gs: Heart size normal . Proxim al airway s unrema rkable . Modera te scolio sis. Athero sclero sis. Lucenc ies sugges tive of emphys lennie. Lungs are otherw ise grossl y clear. ===== IMPRES CHARLES:= ==== No acute or suspic ious findin gs. Change s concer neetu for emphys lennie. READ BY: MADDI RAND, MY Date: 2021 11:21 ajamous [facility] (Rad) [address], [place], [address], 01/13/2022 10:44:17 04/30/20 24 03/02/2024 CT, chest + abdom en + pelvi s, w/ contr ast No observ ation record ed. [email or web address] Not Available 05/21 16:24:34 Result Notes None recorded. Problems Name Problem SNOMED Code Status Onset Date Resolution Date Notes Provider Name and Address Organization Details Recorded Time Solitary nodule of lung 007490543 Active 2016 Right lower lobe. Follow up CT due 01/30/20 18 Nataliia Johansen RN null, [place] [facility] [place] 15:28:42 Cough 57914405 Active 2016 Talya Bull MA null, [place] 15:07:32 Osteoarthrit is of hip 609131023 Active 2017 SHRUTI Irwin Attn: Accounting ,[address] [place], [address] , [place] 17:46:31 Sciatica 56110627 Active 2016 SHRUTI Irwin Attn: Accounting ,[address] [facility], [place], [address] , [place] 17:25:21 Hyperlipidem ia 79540606 Active 2016 SHRUTI Irwin Attn: Accounting ,[address] [place], [address] , [place] 17:25:26 Anemia 005433864 Active 2016 SHRUTI Irwin Attn: Accounting ,[address] [facility], [place], [address] , [facility] 7 17:25:32 Gastroesopha geal reflux disease 346183181 Active 2016 SHRUTI Irwin Attn: Accounting ,[address] [facility], [place], [address] , [facility] 7 17:25:33 Chronic obstructive pulmonary disease 11623309 Active 2016 SHRUTI Irwin Attn: Accounting ,[address] [facility], [place], [address] , [facility] 7 17:25:35 Problem Notes None recorded. Procedures Surgical History Date Name Laterality Status Provider Name and Address Organization Details Recorded Time Appendectomy completed Monica Vogt [facility] 02/23/2017 13:04:50 Back Surgery completed Monica Vogt [facility] 02/23/2017 13:04:54 Tonsillectomy completed Monica Vogt [facility] 02/23/2017 13:05:10 Dilation and Curettage completed Monica Vogt [facility] 02/23/2017 13:05:17 Total hysterectomy completed Monica Vogt [facility] 02/23/2017 13:05:39 Imaging Results Imaging Date Name Status LastModified by Organiz ation Details LastModified Time 05/15/2020 XR, ribs, unilateral, w/ PA chest completed [email or web address] Information not available 05/24/2020 22:57:43 05/18/2020 CT, angiogram, chest, w/wo contrast completed areakan [facility] (Rad) [address], [place], [address], 06/09/2020 15:45:47 05/21/2020 XR, chest completed Information no t available 06/09/2020 15:45:47 05/21/2020 imaging/diagn ostic result completed Information not available 05/27/2020 13:43:37 05/22/2020 XR, chest completed Information no t available 06/09/2020 15:45:48 05/22/2020 XR, chest completed Information not available 05/25/2020 17:50:23 05/23/2020 XR, chest completed Information not available 05/25/2020 17:50:42 07/31/2020 XR, chest completed ajamous Information no t available 08/13/2020 10:49:04 07/31/2020 CT, chest, w/o contrast completed Information not available 08/19/2020 16:17:21 07/31/2020 CT, chest, w/o contrast completed Information not available 08/19/2020 16:16:49 08/01/2020 XR, chest completed Information not available 08/19/2020 16:17:38 07/31/2020 (PRADEEP) ankle brachial index* completed [facility] (Lab) [address] [place], [address], 08/07/2020 17:15:17 08/04/2020 US, thyroid completed [facility] Information not available 08/07/2020 17:18:16 08/04/2020 XR, chest, 2 view completed Information not available 08/19/2020 16:17:57 08/05/2020 imaging/diagn ostic result completed Information not available 08/10/2020 14:59:17 08/05/2020 XR, chest, 2 view completed Information not available 08/19/2020 16:18:20 11/15/2020 XR, chest completed Information no t available 11/16/2020 12:35:14 11/15/2020 CT, head, w/o contrast completed Information not available 11/16/2020 12:35:55 11/15/2020 CT, angiogram, chest, w/ contrast completed Information not available 11/16/2020 12:37:11 11/17/2020 XR, chest completed Information not available 11/23/2020 11:34:35 11/17/2020 XR, chest completed Information not available 11/23/2020 11:39:40 01/06/2022 XR, chest, 2 view completed [facility] (Rad) [address] [place], [address], 01/13/2022 10:44:17 03/02/2024 CT, chest + abdomen + pelvis, w/ contrast completed Information not available 05/21/2024 16:24:34 Procedure Notes None recorded. Medical Equipment None Reported. Allergies Allergen ID Allergen Name Allergen Category Reaction Reaction Severity Criticality Documentation Date Start Date Code Code System Note Provider Name and Address Organization Details Recorded Time 89685 albuterol medicatio n tachycard ia Not available Not available 02/23/2017 435 RxNorm Not Available Not Available Not Available 82935 aspirin medicatio n hives Not available Not available 02/23/2017 1191 RxNorm Not Available Not Available Not Available 76667 latex environme nt,medica tion other Not available Not available 02/23/2017 87051 91 RxNorm Blist ers Not Available Not Available Not Available 02298 naproxen medicatio n rash Not available Not available 02/23/2017 7258 RxNorm Not Available Not Available Not Available 42290 Product containin g penicilli n (product) medicatio n hives Not available Not available 02/23/2017 66683 8001 SNOMED Not Available Not Available Not Available 99166 Substance with sulfonami de structure and antibacte rial mechanism of action (substanc e) medicatio n rash Not available Not available 02/23/2017 15304 8003 SNOMED abd pain Not Available Not Available Not Available 73303 gabapenti n medicatio n abdominal pain Not available Not available 02/23/2017 34352 RxNorm Not Available Not Available Not Available 21509 Non-stero idal anti-infl ammatory agent (product) medicatio n gi bleed Not available Not available 02/23/2017 58404 005 SNOMED Not Available Not Available Not Available 93231 tramadol medicatio n other Not available Not available 02/23/2017 89445 RxNorm Body Infla matio n Not Available Not Available Not Available 82585 lisinopri l medicatio n hives Not available Not available 02/23/2017 92455 RxNorm Not Available Not Available Not Available 85438 citalopra m medicatio n hives Not available Not available 02/23/2017 2556 RxNorm Not Available Not Available Not Available 90769 duloxetin e medicatio n vomiting Not available Not available 02/23/2017 98217 RxNorm Not Available Not Available Not Available 71482 verapamil medicatio n hives Not available Not available 02/23/2017 19627 RxNorm Not Available Not Available Not Available Medications Name Sig Start Date Stop Date Status Note LastModified by Organization Details LastModified Time multivitami n tablet Take 1 tablet every day by oral route as directed for 90 days. 2018 active Not Available Not Available Not Avai lable cyclobenzap rine 10 mg tablet 03/19 completed Not Available Not Available Not Available furosemide 40 mg tablet TAKE 1 TABLET BY MOUTH EVERY DAY DIRECTED( DISCONTIN UE FUROSEMID E 20 MG) active Not Available Not Available No t Available Miralax 17 gram/dose oral powder Take one capful by mouth as needed. Mix with 4-6 oz of liquid prior to administe ring. Maximum dose of 1 capful in 24 hours. 07/06 completed Not Available Not Available Not Available buspirone 5 mg tablet 03/19 completed Not Available Not Available Not Available prednisone 10 mg tablet active Not Available Not Available Not Available doxycycline hyclate 100 mg capsule active Not Available Not Available N ot Available atorvastati n 20 mg tablet Take 1 tablet every day by oral route for 90 days. active Not Available Not Available No t Available ipratropium 0.5 mg-albutero l 3 mg (2.5 mg base)/3 mL nebulizatio n soln USE 1 VIAL VIA NEBULIZER EVERY 6 HOURS active Not Available Not Available No t Available albuterol sulfate 2.5 mg/3 mL (0.083 %) solution for nebulizatio n Inhale 3 mL every 6 hours by nebulizat ion route. 2019 active Not Available Not Available Not Avai lable polyethylen e glycol 3350 17 gram oral powder packet Take 1 packet every day by oral route. active Not Available Not Available No t Available cetirizine 10 mg tablet Take 1 tablet every day by oral route as directed. active Not Available Not Available No t Available atorvastati n 10 mg tablet Take 1 tablet every day by oral route at bedtime. 07/06 completed Not Available Not Available Not Available azithromyci n 250 mg tablet Take 1 tablet every day by oral route as directed. 07/06 completed Not Available Not Available Not Available ofloxacin 0.3 % eye drops 06/27 completed Not Available Not Available Not Available amiodarone 200 mg tablet active Not Available Not Available Not Available sucralfate 1 gram tablet TAKE 1 TABLET BY MOUTH FOUR TIMES DAILY active Not Available Not Available No t Available ondansetron HCl 4 mg tablet Take 1 tablet(s) every 4 hours by oral route as needed. active Not Available Not Available No t Available prednisone 20 mg tablet Take 1 tablet every day by oral route as directed for 7 days. 11/08 completed Not Available Not Available Not Available alendronate 70 mg tablet TAKE 1 TABLET (70 MG) BY ORAL ROUTE ONCE WEEKLY IN THE MORNING, AT LEAST 30 MIN BEFORE FIRST FOOD, BEVERAGE, OR MEDICATIO N OF DAY active Not Available Not Available No t Available Alcohol Pads active Not Available Not Available Not Available dexamethaso ne 6 mg tablet active Not Available Not Available Not Available sertraline 100 mg tablet TAKE 1 TABLET BY MOUTH EVERY DAY active Not Available Not Available No t Available prednisone 5 mg tablet 01/06 completed Not Available Not Available Not Available potassium chloride ER 10 mEq tablet,exte nded release active Not Available Not Available Not Available ciprofloxac in 500 mg tablet Take 1 tablet every 12 hours by oral route as directed for 5 days. 12/31 completed Not Available Not Available Not Available omeprazole 40 mg capsule,del ayed release TAKE ONE CAPSULE BY MOUTH EVERY DAY active Not Available Not Available No t Available aspirin 81 mg tablet,jennie yed release Take 1 tablet every day by oral route. active Not Available Not Available No t Available amitriptyli ne 50 mg tablet Take 1 tablet every day by oral route at bedtime. 03/13 completed Not Available Not Available Not Available acetaminoph en 500 mg tablet Take 1 tablet twice a day by oral route as directed. active Not Available Not Available No t Available oxycodone 15 mg tablet active Not Available Not Available Not Available ketorolac 0.5 % eye drops 06/27 completed Not Available Not Available Not Available nortriptyli ne 25 mg capsule Take 1 capsule every day by oral route at bedtime. active Not Available Not Available No t Available Fleet Enema 19 gram-7 gram/118 mL Insert 118 mL by rectal route as needed. 07/06 completed Not Available Not Available Not Available prednisolon e acetate 1 % eye drops,suspe nsion 06/27 completed Not Available Not Available Not Available magnesium oxide 400 mg (241.3 mg magnesium) tablet active Not Available Not Available Not Available ciprofloxac in 0.3 % eye drops 09/12 completed Not Available Not Available Not Available baclofen 10 mg tablet Take 1 tablet 3 times a day by oral route as needed for 90 days. active Not Available Not Available No t Available doxycycline monohydrate 100 mg capsule active Not Available Not Available Not Available cephalexin 500 mg capsule 03/19 completed Not Available Not Available Not Available pantoprazol e 40 mg tablet,jennie yed release active Not Available Not Available Not Available mirtazapine 30 mg tablet active Not Available Not Available Not Available ferrous sulfate 325 mg (65 mg iron) tablet Take 1 tablet every day by oral route as directed. 2016 active Not Available Not Available Not Avai lable calcipotrie ne 0.005 % topical cream 03/19 completed Not Available Not Available Not Available prednisone 50 mg tablet 01/06 completed Not Available Not Available Not Available Advair Diskus 500 mcg-50 mcg/dose powder for inhalation Inhale 1 puff twice a day by inhalatio n route as directed for 30 days. active Not Available Not Available No t Available nitroglycer in 0.4 mg sublingual tablet active Not Available Not Available Not Available buspirone 7.5 mg tablet Take 1 tablet twice a day by oral route for 90 days. active Not Available Not Available No t Available omeprazole 20 mg capsule,del ayed release 03/19 completed Not Available Not Available Not Available diltiazem CD 120 mg capsule,ext ended release 24 hr active Not Available Not Available Not Available montelukast 10 mg tablet TAKE 1 TABLET BY MOUTH EVERY DAY AT BEDTIME active Not Available Not Available No t Available furosemide 20 mg tablet TAKE 1 TABLET BY MOUTH EVERY DAY DIRECTED active Not Available Not Available No t Available mirtazapine 15 mg tablet Take 1 tablet every day by oral route at bedtime for 90 days. active Not Available Not Available No t Available gabapentin 100 mg capsule active Not Available Not Available Not Available epinephrine 0.3 mg/0.3 mL injection, auto-inject or Inject 0.3 mg by intramusc ular route x1. May repeat dose x1 after 5-15 minutes 04/01 completed Not Available Not Available Not Available ibuprofen 600 mg tablet Take 1 tablet 3 times a day by oral route. 07/05 completed Not Available Not Available Not Available cefuroxime axetil 500 mg tablet active Not Available Not Available No t Available levofloxaci n 500 mg tablet Take 1 tablet every 24 hours by oral route as directed for 7 days. 10/08 completed Not Available Not Available Not Available hydrocortis one butyrate 0.1 % topical solution 01/27 completed Not Available Not Available Not Available levofloxaci n 750 mg tablet active Not Available Not Available Not Available albuterol sulfate HFA 90 mcg/actuati on aerosol inhaler Inhale 2 puffs every 6 hours by inhalatio n route as needed for 30 days. active Not Available Not Available No t Available diltiazem 30 mg tablet active Not Available Not Available Not Available ondansetron 4 mg disintegrat ing tablet active Not Available Not Available N ot Available cefdinir 300 mg capsule active Not Available Not Available Not Available fluticasone propionate 50 mcg/actuati on nasal spray,suspe nsion Inhale one spray in each nostril by inhalatio n route daily active Not Available Not Available No t Available clotrimazol e 1 % topical cream 03/19 completed Not Available Not Available Not Available doxepin 5 % topical cream 03/19 completed Not Available Not Available Not Available metoclopram mely 10 mg tablet Take 1 tablet twice a day by oral route. active Not Available Not Available No t Available oxycodone 5 mg tablet active Not Available Not Available No t Available Mucinex 600 mg tablet, extended release Take 1 tablet every 12 hours by oral route as needed. 2018 active Not Available Not Available Not Avai lable azithromyci n 500 mg tablet active Not Available Not Available Not Available cyclobenzap rine 5 mg tablet Take 1 tablet 3 times a day by oral route. active Not Available Not Available No t Available hydrocortis one-mineral oil-white petrolatum 1 % topical ointment 07/06 completed Not Available Not Available Not Available rosuvastati n 5 mg tablet active Not Available Not Available Not Available potassium chloride ER 10 mEq tablet,exte nded release(par t/cryst) TAKE 1 TABLET BY MOUTH EVERY DAY DIRECTED active Not Available Not Available No t Available Spiriva with HandiHaler 18 mcg and inhalation capsules Inhale 1 capsule every day by inhalatio n route as directed. 12/31 completed Not Available Not Available Not Available pregabalin 75 mg capsule active Not Available Not Available Not Available pregabalin 100 mg capsule active Not Available Not Available Not Available olopatadine 0.2 % eye drops active Not Available Not Available Not Available Symbicort 160 mcg-4.5 mcg/actuati on HFA aerosol inhaler active Not Available Not Available Not Available oxycodone 20 mg tablet active Not Available Not Available Not Available oxycodone 10 mg tablet active Not Available Not Available Not Available Xarelto 15 mg tablet active Not Available Not Available No t Available Xarelto 20 mg tablet active Not Available Not Available No t Available OneTouch Verio test strips active Not Available Not Available Not Available Chantix Starting Month Box 0.5 mg (11)-1 mg (42) tablets in dose pack active Not Available Not Available No t Available Breo Ellipta 09/12 completed Not Available Not Available Not Available Spiriva Respimat 2.5 mcg/actuati on solution for inhalation Inhale 2 puffs every day by inhalatio n route for 30 days. 2019 active Not Available Not Available Not Avai lable Incruse Ellipta 62.5 mcg/actuati on powder for inhalation 12/31 completed Not Available Not Available Not Available OneTouch Delica Plus Lancet 33 gauge active Not Available Not Available Not Available [facility] COVID-19 Vaccine (PF) 30 mcg/0.3 mL IM susp (purple) ADMINISTE R 0.3ML IN THE MUSCLE DIRECTED active Not Available Not Available No t Available Vitals Date Recorded Body height Oxygen saturation Oxygen saturation in Arterial blood by Pulse oximetry Inhaled oxygen flow rate Heart rate Respiratory rate Body temperature Body mass index (BMI) Body weight Systolic blood pressure Diastolic blood pressure Provider Name and Address Organization Details Last Updated DateTime 0 165.1 cm 92 % 92 % 1 L/min 88 /min 20 /min 96.8 [degF] 20.6 kg/m2 65297.4 5 g 118 mm[Hg] 70 mm[Hg] Ashwini Rollins LPN [place] [facility] 0 09:55:08 Date Recorded Body height Oxygen saturation Oxygen saturation in Arterial blood by Pulse oximetry Heart rate Body temperature Body mass index (BMI) Body weight Systolic blood pressure Diastolic blood pressure Provider Name and Address Organization Details Last Updated DateTime 1 165.1 cm 95 % 95 % 73 /min 97.1 [degF] 21.7 kg/m2 70499.1 6 g 102 mm[Hg] 72 mm[Hg] Mercedes Strong [facility] 1 12:27:31 Date Recorded Body height Oxygen saturation Oxygen saturation in Arterial blood by Pulse oximetry Heart rate Respiratory rate Body temperature Body mass index (BMI) Body weight Systolic blood pressure Diastolic blood pressure Provider Name and Address Organization Details Last Updated DateTime 1 165.1 cm 96 % 96 % 98 /min 20 /min 97.3 [degF] 19.3 kg/m2 25248.7 1 g 120 mm[Hg] 78 mm[Hg] Ashwini Rollins LPN [place] [facility] 1 12:03:14 Date Recorded Body height Oxygen saturation Oxygen saturation in Arterial blood by Pulse oximetry Heart rate Respiratory rate Body temperature Body mass index (BMI) Body weight Systolic blood pressure Diastolic blood pressure Provider Name and Address Organization Details Last Updated DateTime 2 165.1 cm 90 % 90 % 80 /min 18 /min 97.3 [degF] 17.5 kg/m2 29326.2 g 92 mm[Hg] 60 mm[Hg] Ashwini Rollins LPN [place] [facility] 2 11:28:24 Date Recorded Oxygen saturation Oxygen saturation in Arterial blood by Pulse oximetry Pain severity - 0-10 verbal numeric rating [Score] - Reported Heart rate Body temperature Body weight Body mass index (BMI) Body height Systolic blood pressure Diastolic blood pressure Provider Name and Address Organization Details Last Updated DateTime 4 96 % 96 % 0 80 /min 97 [degF] 22330.6 8 g 16.7 kg/m2 160.02 cm 96 mm[Hg] 59 mm[Hg] Eda Mno MA [place] [facility] 4 10:54:04 Social History Question Answer Notes LastModified by Organizat ion Details LastModified Time Tobacco Smoking Status Current Every Day Smoker Monica Vogt MA null, [place] [facility] 02/23/2017 13:06:01 Do You Have An Advance Directive? No Information not available 02/23/2017 What Is Your Level Of Alcohol Consumption? Occasional Information not available 06/27/2017 What Is Your Level Of Caffeine Consumption? Heavy Information not available 03/24/2017 In The 14 Days Before Symptom Onset, Have You Had Close Contact With A Laboratory-confir med COVID-19 While That Case Was Ill? No Information not available 01/06/2022 In The 14 Days Before Symptom Onset, Have You Had Close Contact With A Person Who Is Under Investigation For COVID-19 While That Person Was Ill? No Information not available 01/06/2022 Have You Been To An Area Known To Be High Risk For COVID-19? No Information not available 01/06/2022 Are You Currently Employed? No Information not available 02/23/2017 What Type Of Diet Are You Following? SPECIFIC Sugar Intake Information not available 06/27/2017 Which Illicit Or Recreational Drugs Have You Used? None Information not available 06/27/2017 Education 12 Information no t available 06/27/2017 Hard Of Hearing Or Deaf In One Or Both Ears? No Information not available 06/27/2017 Legally Blind In One Or Both Eyes? No Information no t available 06/27/2017 Live Alone Or With Others? With Others Information not available 02/23/2017 Do You Have A Medical Power Of Management Accountant? No Information not available 01/06/2022 What Was The Date Of Your Most Recent Tobacco Screening? 01/01/2024 atatema Information not available 01/01/2024 How Much Tobacco Do You Smoke? 0.5 PPD Information not available 06/27/2017 General Stress Level Low Information not available 03/24/2017 Sex: Unknown Functional Status Question Answer Note LastModified by Organization D etails LastModified Time Are you able to care for yourself? Yes Information not available 02/23/2017 What is your exercise level? Moderate Information not available 06/27/2017 Mental Status None recorded. Family History Nothing Reported. Medical History Condition Response Skin Problems Y Muscle, Joint, or Bone Problems Y Acid Reflux (GERD) Y Headaches Y Hypertension N Stroke Y Osteoporosis Y Allergies Y GI Problems Y COPD Y Kidney Disease N Gynecological HistoryNo gynecological history recorded. Obstetrics History GPAL:G 0 P 0 0 0 0 Immunizations Vaccine Type Date Status Note Provider Nam e and Address Organization Details Recorded Time Pneumococcal conjugate PCV 13 7 completed Not Available [facility] 09/28/2019 02:47:57 Tdap 7 completed Not Available [facility] 09/28/2019 02:33:51 pneumococcal polysaccharide PPV23 8 completed Not Available [facility] 09/28/2019 02:36:25 Influenza, split virus, quadrivalent, preservative 8 completed Not Available [facility] 09/28/2019 02:47:21 Pneumococcal Conjugate, unspecified formulation 8 completed Monica Vogt MA [place], [place] - [facility] 02/23/2017 13:07:10 Past Encounters Encounter ID Performer Location Encounter Start Date Encounter Closed Date Diagnosis/Indication Diagnosis SNOMED-CT Code Diagnosis ICD10 Code Diagnosis Note [id number] SHRUTI Irwin ([facility]) [address] [place] [address] 02/23/2017 11:43:55 02/24/2017 13:39:02 Adult health examination 134591682 Z00.00 Hyperlipidemia 03458244 E78.5 Osteoporosis 70066655 M8 1.0 Sciatica 54986315 M54.30 Anemia 714451683 D64.9 Gastroesop hageal reflux disease 222483474 K21.9 Chronic ob structive pulmonary disease 46678987 J44.9 [id number] SHRUTI Irwin ([facility]) [address] [place] [address] 03/08/2017 09:44:16 03/09/2017 09:19:18 Active or passive immunization 549298150 Z23 Screening mammography 24 954857 Z12.31 Pneumonia 131712093 J18. 9 Hip pain 02220760 M25.55 1 Cataract 171139648 H26.9 Low blood pressure 37591 003 I95.9 Denies CP, SOB, dizziness or diaphoresi s. Denies weakness. Patient states is asymptomat ic and recovering from pneumonia this past weekend as the last four days had loss of appetite. Patient states is starting to get her appetite back and is starting to increase water intake. [id number] SHRUTI Irwin [facility] ([facility]) [address] [place] [address] 03/24/2017 09:58:34 03/27/2017 13:50:12 Upper respiratory infection 97727947 J06.9 Low blood pressure 76139 003 I95.9 [id number] SHRUTI Irwin [facility] ([facility]) [address] [place] [address] 06/27/2017 11:59:07 07/04/2017 09:31:35 Urinary incontinence 556763061 R32 Screening for malignant neoplasm of colon 696128516 Z12.11 Osteoarthritis of hip 23 1068550 M16.9 [id number] SHRUTI Irwin [facility] ([facility]) [address] [place] [address] 08/09/2017 14:23:41 08/15/2017 08:31:28 Acute bronchitis 74802768 J20.9 Chronic ob structive pulmonary disease 98631499 J44.9 [id number] SHRUTI Irwin [facility] ([facility]) [address] [place] [address] 8 09/26/2017 10:26:10 09/29/2017 14:03:22 Adult health examination 641524106 Z00.00 Chronic ob structive pulmonary disease 01701112 J44.9 [id number] SHRUTI Irwin [facility] ([facility]) [address] [place] [address] 11/10/2017 16:11:36 11/15/2017 11:54:28 Chronic obstructive pulmonary disease 83649513 J44.9 Osteoarthritis of hip 23 3461826 M16.9 [id number] Ren[facility] [address] [place] [address] 12/25/2017 11:13:06 01/12/2018 10:22:10 Chronic obstructive pulmonary disease 52031222 J44.9 Patient will continue on the same management . I yeison get her old record and check PFTs, 6MWT, CBC and CT chest Nicotine dependence 5629 4008 F17.200 >100YH counseled to quit 5 mnutes Stricture of esophagus 73616378 K22.2 S/P diltation Sleep disorder 02318190 G47.9 I will check overnight O2 study Posterior rhinorrhea 758 70345 R09.82 I will check IgE [id number] SHRUTI Irwin [facility] ([facility]) [address] [place] [address] 12/29/2017 10:15:14 01/02/2018 15:15:11 Anemia 293810286 D64.9 Nausea 590236744 R11.0 Osteoarthritis of hip 23 8214577 M16.9 [id number] [facility] [address] [place] [address] 02/08/2018 12:05:54 02/13/2018 11:39:17 Chronic obstructive pulmonary disease 21318801 J44.9 Patient will continue on the same management .FEV1 76%, FVC 96%, FEV1/FVC 61%, BD-, FEF25/75% 44%, TLC 81%, DLCO 102%, Continue Advair 500/50 and Douneb qid Nicotine dependence 5629 4008 F17.200 >100YH counseled to quit 5 mnutes Stricture of esophagus 27419841 K22.2 S/P diltation Sleep disorder 48910313 G47.9 I will check overnight O2 study-resu lt is still pending Posterior rhinorrhea 758 88512 R09.82 IgE- is pending, patient is using Flonase and singulair Eosinophil count above reference range 314659500 D72.1 Probably secondary to mold in her apartment which was cleaned. Multiple n odules of lung 012186854 R91.[address] in 6 months, she had 5 mm ground glass opacity in LLL and 7 mm in the oplaque fissure [id number] SHRUTI Irwin [facility]) [address] [place] [phone] 03/16/2018 10:35:01 03/27/2018 09:01:07 Acute urinary tract infection 397010450 N39.0 [id number] Renate Gallardo MD [facility] [address] [address] 06/14/2018 09:38:36 06/15/2018 14:41:08 Chronic obstructive pulmonary disease 96657231 J44.9 Patient will continue on the same management .FEV1 76%, FVC 96%, FEV1/FVC 61%, BD-, FEF25/75% 44%, TLC 81%, DLCO 102%, Continue Advair Diskus 500/50 and duoneb qid Multiple n odules of lung 903379575 R91.[address] in 6 months, she had 5 mm ground glass opacity in LLL and 7 mm in the oplaque fissure Nicotine dependence 5629 4008 F17.200 >100YH counseled to quit 5 mnutes Sleep disorder 00548282 G47.9 I will check overnight O2 study-resu lt is still pending Posterior rhinorrhea 758 93300 R09.82 IgE- is pending, patient is using Flonase and singulair Eosinophil count above reference range 104470211 D72.1 Probably secondary to mold in her apartment which was cleaned. 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 F17.121 [id number] SHRUTI Irwin W [facility] ([facility]) [address] [place] [address] 11/08/2018 11:32:14 11/08/2018 14:49:32 Sciatica 28462562 M54.30 G89.29 Increased frequency of urination 171489943 R35.0 Depressive disorder 3548 9007 F32.9 Respirator y tract congestion 885674546 R09.89 [id number] Renate Gallardo MD [facility] [address] [address] 12/31/2018 10:55:12 12/31/2018 16:48:02 Chronic obstructive pulmonary disease 80956860 J44.9 Patient will continue on the same management .FEV1 76%, FVC 96%, FEV1/FVC 61%, BD-, FEF25/75% 44%, TLC 81%, DLCO 102%(2017) , Continue Advair Diskus 500/50 and duoneb BID and as needed, apparently she's on Incruse ellipta now Multiple n odules of lung 673958214 R91.[address] chest, she had 5 mm ground glass opacity in LLL and 7 mm in the oplaque fissure. 06/2018 and 01/2018. I will repeat CT chest Nicotine dependence 5629 4008 F17.200 >100YH counseled to quit 5 mnutes Sleep disorder 97680719 G47.9 I will check overnight O2 study-resu lt is still pending Posterior rhinorrhea 758 98935 R09.82 IgE- is pending, patient is using Flonase and singulair Eosinophil count above reference range 923841894 D72.1 Probably secondary to mold in her apartment which was cleaned. Stricture of esophagus 20213806 K22.2 S/P diltation [id number] Lino Nicholas NP-C [address] manuel moreno ([facility]) [address] [place] [facility] [place] [address] 02/05/2019 10:07:39 02/05/2019 13:29:42 Essential hypertension 01338513 I10 Hyperlipidemia 57621215 E78.5 Nausea 244292333 R11.0 Adult heal th examination 012980068 Z00.00 Chronic ob structive pulmonary disease 44174252 J44.9 Sprain of right ankle 11 19094239 6218197 S93.401A [id number] Renate Gallardo MD [facility] [address] [place] [address] 04/01/2019 10:43:27 04/02/2019 17:11:40 Chronic obstructive pulmonary disease 31144363 J44.9 Patient will continue on the same management .FEV1 76%, FVC 96%, FEV1/FVC 61%, BD-, FEF25/75% 44%, TLC 81%, DLCO 102%(2018) , Continue Advair Diskus 500/50 and duoneb BID and as needed Allergic rhinitis 167302 04 J30.9 Patient is using Flonase and Singulair Nicotine dependence 5629 4008 F17.200 >100YH counseled to quit 5 mnutes Multiple n odules of lung 021989299 R91.[address] chest, she had 5 mm ground glass opacity in LLL and 7 mm in the oplaque fissure. 06/2018 and 01/2018. Ct chest 01/2019, reviewed by me and showed benign kim-fissu ral lymph nodes which does not need follow up. Sleep disorder 32193929 G47.9 I will check overnight O2 study-resu lt is still pending Posterior rhinorrhea 758 11693 R09.82 IgE- is pending, patient is using Flonase and singulair Stricture of esophagus 47007207 K22.2 S/P diltation Eosinophil count above reference range 139750910 D72.1 Probably secondary to mold in her apartment which was cleaned. [id number] Renate Gallardo MD [facility] [address] [place] [address] 09/12/2019 09:16:28 09/16/2019 15:32:15 Chronic obstructive pulmonary disease 61828201 J44.9 Patient will continue on the same management .FEV1 76%, FVC 96%, FEV1/FVC 61%, BD-, FEF25/75% 44%, TLC 81%, DLCO 102%(2017) , Continue Advair Diskus 500/50 and duoneb BID and as needed Sleep disorder 09654217 G47.9 I will check overnight O2 study-resu lt is still pending Multiple n odules of lung 099487354 R91.[address] chest, she had 5 mm ground glass opacity in LLL and 7 mm in the oplaque fissure. 06/2018 and 01/2018. Ct chest 01/2019, reviewed by me and showed benign kim-fissu ral lymph nodes which does not need follow up. Nicotine dependence 5629 4008 F17.200 >100YH counseled to quit 5 mnutes Allergic rhinitis 413334 04 J30.9 Patient is using Flonase and Singulair Posterior rhinorrhea 758 49435 R09.82 IgE- is pending, patient is using Flonase and singulair Stricture of esophagus 70343880 K22.2 S/P diltation Eosinophil count above reference range 137860623 D72.1 Probably secondary to mold in her apartment which was cleaned. [id number] Renate Gallardo MD [facility] [address] [address] 03/19/2020 11:30:37 03/26/2020 11:41:06 Chronic obstructive pulmonary disease 54689940 J44.9 Patient will continue on the same management .FEV1 76%, FVC 96%, FEV1/FVC 61%, BD-, FEF25/75% 44%, TLC 81%, DLCO 102%(2018) , Continue Advair Diskus 500/50 and duoneb BID and as needed Pleuritic pain 4200469 R 07.81 etiology is still unclear. She's finishing with ABXs. I will order Ct chest with contrast to rule out PE. Nicotine dependence 5629 4008 F17.200 >100YH counseled to quit 5 mnutes Pulmonary emphysema 8743 3001 J43.9 Secondary to nicotine dependence . Posterior rhinorrhea 758 80925 R09.82 IgE- is pending, patient is using Flonase and singulair Sleep disorder 76997414 G47.9 I will check overnight O2 study-resu lt is still pending Allergic rhinitis 880906 04 J30.9 Patient is using Flonase and Singulair Stricture of esophagus 49188930 K22.2 S/P diltation Eosinophil count above reference range 087986054 D72.1 Probably secondary to mold in her apartment which was cleaned. Multiple n odules of lung 739470193 R91.[address] chest, she had 5 mm ground glass opacity in LLL and 7 mm in the oplaque fissure. 06/2018 and 01/2018. Ct chest 01/2019, reviewed by me and showed benign kim-fissu ral lymph nodes which does not need follow up. Unintentio nal weight loss 117951606 R63.4 appetite is good [id number] Renate Gallardo MD [facility] [address] [address] 05/07/2020 09:50:22 05/07/2020 14:28:17 Chronic obstructive pulmonary disease 24175137 J44.9 Patient will continue on the same management .FEV1 76%, FVC 96%, FEV1/FVC 61%, BD-, FEF25/75% 44%, TLC 81%, DLCO 102%(2017) , Continue Advair Diskus 500/50 and duoneb BID and as neededI will check PFTs Hypoxemia 528489624 R09. 02 Patient uses O2 at night, overnight O2 study in 01/2019 showed significan t nocturnal hypoxemia Sleep disorder 29228638 G47.9 Patient is still having sleep disturbanc es, I will check SPLIT sleep study Nicotine dependence 5629 4008 F17.200 >100YH counseled to quit 5 mnutes Multiple n odules of lung 919965783 R91.[address] chest, she had 5 mm ground glass opacity in LLL and 7 mm in the oplaque fissure. 06/2018 and 01/2018. Ct chest 01/2019, reviewed by me and showed benign kim-fissu ral lymph nodes which does not need follow up. Chronic cough 79957270 R 05 Multifacto rial Pulmonary emphysema 8743 3001 J43.9 Secondary to nicotine dependence . Allergic rhinitis 562180 04 J30.9 Patient is using Flonase and Singulair Gastroesop hageal reflux disease 370368225 K21.9 Advised about life style modificati on Stricture of esophagus 91960473 K22.2 S/P diltation Posterior rhinorrhea 758 39137 R09.82 IgE- is pending, patient is using Flonase and singulair Eosinophil count above reference range 269716952 D72.1 Probably secondary to mold in her apartment which was cleaned. Unintentio nal weight loss 247891843 R63.4 appetite is good [id number] Renate Gallardo MD [facility] [address] [place] [address] 06/11/2020 09:16:37 06/11/2020 14:37:57 Chronic obstructive pulmonary disease 85241561 J44.9 Patient will continue on the same management .FEV1 76%, FVC 96%, FEV1/FVC 61%, BD-, FEF25/75% 44%, TLC 81%, DLCO 102%(2018) , Continue Advair Diskus 500/50 and duoneb BID and as neededI will check PFTs Pulmonary emphysema 8743 3001 J43.9 Secondary to nicotine dependence . Allergic rhinitis 314406 04 J30.9 Patient is using Flonase and Singulair Posterior rhinorrhea 758 82471 R09.82 IgE- is pending, patient is using Flonase and singulair Unintentio nal weight loss 903445761 R63.4 appetite is good Multiple n odules of lung 274549279 R91.[address] chest, she had 5 mm ground glass opacity in LLL and 7 mm in the oplaque fissure. 06/2018 and 01/2018. Ct chest 01/2019, reviewed by me and showed benign kim-fissu ral lymph nodes which does not need follow up. Nicotine dependence 5629 4008 F17.200 >100YH counseled to quit 5 mnutes Sleep disorder 70007307 G47.9 Patient is still having sleep disturbanc es, I will check SPLIT sleep study Gastroesop hageal reflux disease 833136288 K21.9 Advised about life style modificati on Stricture of esophagus 51071651 K22.2 S/P diltation Eosinophil count above reference range 121162437 D72.10 has improved Chronic cough 77971165 R 05 Multifacto rial Hypoxemia 993578909 R09. 02 Patient uses O2 at night, overnight O2 study in 01/2019 showed significan t nocturnal hypoxemia [id number] Renate Gallardo MD [facility] [address] [place] [address] 10/15/2020 12:08:53 10/16/2020 10:05:31 Chronic obstructive pulmonary disease 08477099 J44.9 Patient will continue on the same management .FEV1 76%, FVC 96%, FEV1/FVC 61%, BD-, FEF25/75% 44%, TLC 81%, DLCO 102%(2018) , Continue Advair Diskus 500/50 and duoneb BID and as neededI will check PFTs Chronic re spiratory failure 87194763 J96.10 On O2 2L/M Dyspnea on exertion 6084 5006 R06.09 Secondary to above Nicotine dependence 5629 4008 F17.200 >100YH counseled to quit 5 mnutes Allergic rhinitis 167248 04 J30.9 Patient is using Flonase and Singulair Posterior rhinorrhea 758 31297 R09.82 IgE- is pending, patient is using Flonase and singulair Gastroesop hageal reflux disease 834602272 K21.9 Advised about life style modificati on Muscle weakness 57463961 M62.81 Continue with walking and rehab Chronic cough 45996846 R 05 Multifacto rial Eosinophil count above reference range 134664786 D72.10 has improved Pulmonary emphysema 8743 3001 J43.9 Secondary to nicotine dependence . Stricture of esophagus 01335215 K22.2 S/P diltation Multiple n odules of lung 711927984 R91.[address] chest, she had 5 mm ground glass opacity in LLL and 7 mm in the oplaque fissure. 06/2018 and 01/2018. Ct chest 01/2019, reviewed by me and showed benign kim-fissu ral lymph nodes which does not need follow up. [id number] Renate Gallardo MD [facility] [address] [place] [address] 09/02/2021 11:48:49 09/02/2021 13:26:20 Chronic obstructive pulmonary disease 65442779 J44.9 Patient will continue on the same management .FEV1 76%, FVC 96%, FEV1/FVC 61%, BD-, FEF25/75% 44%, TLC 81%, DLCO 102%(2018) , Continue Advair Diskus 500/50 and duoneb BID and as neededI will check PFTs Multiple n odules of lung 847981653 R91.[address] chest, she had 5 mm ground glass opacity in LLL and 7 mm in the oplaque fissure. 06/2018 and 01/2018. Ct chest 01/2019, reviewed by me and showed benign kim-fissu ral lymph nodes which does not need follow up. Nicotine dependence 5629 4008 F17.200 >100YH counseled to quit 5 mnutes Dyspnea on exertion 6084 5006 R06.09 Secondary to above Stricture of esophagus 20546833 K22.2 S/P diltation Pulmonary emphysema 8743 3001 J43.9 Secondary to nicotine dependence . Chronic cough 83237422 R 05.3 Multifacto rial Chronic re spiratory failure 89933656 J96.10 On O2 2L/M Muscle weakness 43296538 M62.81 Continue with walking and rehab Gastroesop hageal reflux disease 571603859 K21.9 Advised about life style modificati on Posterior rhinorrhea 758 06780 R09.82 IgE- is pending, patient is using Flonase and singulair Allergic rhinitis 140620 04 J30.9 Patient is using Flonase and Singulair Eosinophil count above reference range 885980895 D72.10 has improved [id number] Renate Gallardo MD [facility] [address] [address] 01/06/2022 10:43:19 01/07/2022 07:42:18 Chronic obstructive pulmonary disease 48345016 J44.9 Patient will continue on the same management .FEV1 76%, FVC 96%, FEV1/FVC 61%, BD-, FEF25/75% 44%, TLC 81%, DLCO 102%(2018) , Continue Advair Diskus 500/50 and duoneb BID and as neededI will check PFTs Pulmonary emphysema 8743 3001 J43.9 Secondary to nicotine dependence . Abnormal weight loss 267 648234 R63.4 etiology is unclear Nicotine dependence 5629 4008 F17.200 >100YH counseled to quit 5 mnutes Allergic rhinitis 622995 04 J30.9 Patient is using Flonase and Singulair Posterior rhinorrhea 758 69984 R09.82 IgE- is pending, patient is using Flonase and singulair Chronic cough 05861895 R 05.3 Multifacto rial Chronic re spiratory failure 50276827 J96.10 On O2 2L/M Eosinophil count above reference range 302044517 D72.10 has improved Dyspnea on exertion 6084 5006 R06.09 Secondary to above Gastroesop hageal reflux disease 473738996 K21.9 Advised about life style modificati on Stricture of esophagus 87509923 K22.2 S/P diltation Muscle weakness 49105726 M62.81 Continue with walking and rehab [id number] [facility] [address] [place] [phone] 01/01/2024 10:06:59 01/02/2024 07:37:34 Chronic obstructive pulmonary disease 57948504 J44.9 Patient will continue on the same management .FEV1 76%, FVC 96%, FEV1/FVC 61%, BD-, FEF25/75% 44%, TLC 81%, DLCO 102%(2018) , Continue Symbicort 160/4.5 2 puffs BID and Duoneb QIDI will check PFTs Pulmonary emphysema 8743 3001 J43.9 Secondary to nicotine dependence . Abnormal weight loss 267 532959 R63.4 etiology is unclear Nicotine dependence 5629 4008 F17.200 >100YH , quit 2023, will check LDCT Allergic rhinitis 592089 04 J30.9 Patient is using Flonase and Singulair Posterior rhinorrhea 758 45277 R09.82 IgE- is pending, patient is using Flonase and singulair Chronic cough 51253912 R 05.3 Multifacto rial Chronic re spiratory failure 89037273 J96.10 On O2 2L/M Eosinophil count above reference range 712502859 D72.10 has improved Dyspnea on exertion 6084 5006 R06.09 Secondary to above Gastroesop hageal reflux disease 138018263 K21.9 Advised about life style modificati on Stricture of esophagus 46657122 K22.2 S/P diltation Muscle weakness 09155439 M62.81 Continue with walking and rehab Health Concerns Section Related Observation LastModified by Organization Detai ls LastModified Time None Recorded Concern Status LastModified by Organization Details LastModified Time None Recorded Advance Directives Directive N: Payers Encounter Date Sequence Insurance Name Policy Number Policy Mc Covered Member ID Mc Member ID Guarantor Name 06/11/2020 1 [place] Aneta Dacosta Mary Anne [id number] Aneta Dacosta Lacy 06/11/2020 2 [facility] PRIOR TO 03/11/2021 (MEDICAID REPLACEMENT - HMO) Aneta Dacosta [place] [id number] Aneta Dacosta Mary Anne 10/15/2020 1 [place] Aneta Dacosta Mary Anne [id number] Aneta Dacosta [place] 10/15/2020 2 [facility] PRIOR TO 03/11/2021 (MEDICAID REPLACEMENT - HMO) Aneta Dacosta [place] [id number] Aneta Dacosta Mary Anne 09/02/2021 3 [facility] ON OR AFTER 03/11/21 (MEDICAID REPLACEMENT - HMO) Aneta Dacosta Mary Anne [id number] Aneta Dacosta Mary Anne 01/06/2022 3 [facility] ON OR AFTER 03/11/21 (MEDICAID REPLACEMENT - HMO) Aneta Dacosta Mary Anne [id number] Aneta Dacosta Mary Anne 01/01/[address] [facility] (MEDICARE REPLACEMENT/AD VANTAGE - PPO) [id number] Aneta S Mary Anne [id number] Aneta Dacosta Mary Anne 01/01/2024 2 [facility] ON OR AFTER 03/11/21 (MEDICAID REPLACEMENT - HMO) Aneta Dacosta Mary Anne [id number] Aneta Dacosta Mary Anne Notes Date Note Type Note Provider Name and Address Organization Details Recorded Time 06/11/2020 text/html Patient is here for follow up. She has been doing fine. She's still smoking. She's still taking Advair diskus 500/50, 1 puff BID and Proair HFA. She's on nebulizer. She's still coughing intermittently. Renate Gallardo MD [address], [place], [address], [facility] 06/11/2020 10:32:50 10/15/2020 text/html Patient is here for follow up. SHe has been doing OK. She is still smoking. She enjoy smoking. She is on O2 2L/M. She has not done PFTs. She's up to date with flu and COVID-19 MD Sonam Baumann, [place], [address], [facility] 10/15/2020 12:35:58 09/02/2021 text/html Patient is here for follow up. She is feeling very good. She has no complaint. She's up to date with COID-19 vaccine. MD Sonam Baumann, [place], [place], [address] [place] [address], [facility] 09/02/2021 12:18:23 01/06/2022 text/html Patient is here for follow up. She continued to lose weight. She has no appetite. She is still smoking. She's up to date with COVID-19 vaccine. Renate Gallardo MD [address], [place], [address], [facility] 01/06/2022 11:52:37 01/01/2024 text/html Patient is here for follow up. She has been in and out the hospital for the past 4 months ( 5 times). She has quit smoking. MD Sonam Baumann, [place], [address], [facility] 01/01/2024 11:10:59 OBGyn Episode No OBEpisode recorded.
[2024-12-04 13:26] LABS: Toxigenic C. Diff NEGATIVE (NEGATIVE)
== END 2024-12-04 11:57 | disposition home or self-care (01) ==
PROVIDERS: PCP Internal Medicine Adolescent Medicine; Visit Provider Internal Medicine Adolescent Medicine
DX: I50.9 Heart failure, unspecified (principal); J44.9 Chronic obstructive pulmonary disease, unspecified
CPT/HCPCS: 87493